=== PATIENT | female | born 1980 | race Caucasian/White ===

== ENCOUNTER → 2017-08-22 | Outpatient (CLI) | payer BC ==
--- NOTE | 2017-08-22 09:36 | CT ---
EXAMINATION TYPE: CT sinus wo con DATE OF EXAM: 08/22/2017 COMPARISON: NONE HISTORY: Patient complains of recurrent sinus infections. CT DLP: 630.3 mGycm. Automated Exposure Control for Dose Reduction was Utilized. TECHNIQUE: CT scan of the sinuses is performed without contrast, axial images are obtained, coronal r eformatted images are also reviewed. FINDINGS: The paranasal sinuses including the frontal, ethmoid, sphenoid, and maxillary sinuses bila terally are well-aerated without abnormal opacification. The ostiomeatal complex is patent bilateral ly on the coronal images. Visualized portion of mastoid air cells show no abnormal opacification. The globes are intact bilate rally. There is a nasal septal deviation. IMPRESSION: The sinuses are clear and the ostiomeatal complex is patent bilaterally.
== END | disposition home or self-care (01) ==
LOC: RADCTMAIN 08:57
PROVIDERS: ATTEND Otolaryngology
DX: J32.9 Chronic sinusitis, unspecified (principal)
CPT/HCPCS: 70486

== ENCOUNTER → 2018-12-16 | Outpatient (CLI) | payer BC ==
[2018-12-16 11:14] LABS: Basophils # (A) 0.1 k/uL (0-0.2); Basophils % (A) 1 %; Eosinophils # (A) 0.2 k/uL (0-0.7); Eosinophils % (A) 3 %; HCT 46.5 % (34.0-46.0); HGB 15.7 gm/dL (11.4-16.0); Lymphocytes # (A) 2.5 k/uL (1.0-4.8); Lymphocytes % (A) 41 %; MCH 30.8 pg (25.0-35.0); MCHC 33.8 g/dL (31.0-37.0); MCV 91.2 fL (80.0-100.0); Mean Platelet Volume 6.4; Monocytes # (A) 0.3 k/uL (0-1.0); Monocytes % (A) 6 %; Neutrophils % (A) 48 %; Platelet Count 366 k/uL (150-450); RDW 12.7 % (11.5-15.5); WBC 6.2 k/uL (3.8-10.6)
[2018-12-16 11:41] LABS: Appearance,Urine Cloudy (Clear); Bilirubin,Urine Negative (Negative); Blood,Urine Trace (Negative); Color,Urine Yellow; Glucose,Urine (UA) Negative (Negative); Ketones,Urine Negative (Negative); Leukocyte Esterase,Urine Small (Negative); Mucus,Urine Rare /hpf; Nitrite,Urine Negative (Negative); PH, Urine 5.5 (5.0-8.0); Protein,Urine Negative (Negative); RBC,Urine 2 /hpf (0-5); Squamous Epithelial Cell,Urine 11 /hpf (0-4); Urobilinogen,Urine <2.0 mg/dL (<2.0); WBC,Urine 3 /hpf (0-5)
[2018-12-16 12:10] LABS: Erythrocyte Sedimentation Rate 12 mm/hr (0-20)
[2018-12-16 16:58] LABS: Albumin/Globulin Ratio 2.27 (1.60-3.17); Anion Gap 6.8 mmol/L (4.00-12.00); Calcium 9.8 mg/dL (8.7-10.3); Carbon Dioxide 23.2 mmol/L (21.6-31.8); Globulin 2.2 g/dL (1.6-3.3); Potassium 4.3 mmol/L (3.5-5.5); Total Bilirubin 0.7 mg/dL (0.3-1.2); Total Protein 7.2 g/dL (6.2-8.2)
[2018-12-17 05:48] LABS: Gliadin AB IgA, Unit <0.2 U/mL
[2018-12-17 12:22] LABS: Anti-Endomysial IgA Antibody <1:10 Titer (<1:10)
== END | disposition home or self-care (01) ==
LOC: LABWHC1 10:09
PROVIDERS: ATTEND Allergy & Immunology
DX: K21.9 Gastro-esophageal reflux disease without esophagitis (principal); K59.09 Other constipation; J32.9 Chronic sinusitis, unspecified
CPT/HCPCS: 36415; 80053; 81001; 82784; 82785; 83516; 85025; 85652; 86003; 86162; 86255; 86317

== ENCOUNTER 2020-04-30 12:06 | Emergency (ER) | payer OTHER ==
[2020-04-30 12:14] VITALS: BP 132/86; PULSE 91; RESP 18; TEMP 97.9
[2020-04-30] MEDS ORDERED: FLUORESCEIN STRIPS 1 MG STRIP RIGHT EYE ONE (12:22)
[2020-04-30] MEDS ORDERED: PROPARACAINE 0.5% OPHTH DROPS 15 ML BTL RIGHT EYE STA (12:22)
[2020-04-30] MEDS ORDERED: ONDANSETRON 4 MG ODT STARTER PACK 2 TAB BTL PO STA (12:48)
--- NOTE | 2020-04-30 13:13 | ED ---
Eye Problem HPI - General Chief complaint: Eye Problems Stated complaint: Stick went in eye, nausea Time Seen by Provider: 04/30/20 12:21 Source: patient Mode of arrival: wheelchair Limitations: no limitations - History of Present Illness Initial comments: 40-year-old feel present for right eye pain and irritation after a weed Winter I she states she was weeding and there was a more stiff weed that she's struck her right eye with. She states that she has had light sensitivity and pain since. Patient states she has had blurred vision she doesn't surrounding redness. She states she's had some nausea and vomiting secondary to the pain she states that that she does not tolerate pain well and frequently vomits from pain remaining review of systems negative upon arrival patient appears well nontoxic distress - Related Data Previous Rx's Medication Instructions Recorded Ciprofloxacin Ophth Soln [Cipro 1 drops RIGHT EYE Q6HR 7 Days #3 ml 04/30/20 0.3% Ophth Soln] Allergies Allergy/AdvReac Type Severity Reaction Status Date / Time No Known Allergies Allergy Verified 04/30/20 12:14 Review of Systems ROS Statement: Those systems with pertinent positive or pertinent negative responses have been documented in the HPI. ROS Other: All systems not noted in ROS Statement are negative. Past Medical History Past Medical History: No Reported History History of Any Multi-Drug Resistant Organisms: None Reported Past Surgical History: Tonsillectomy Additional Past Surgical History / Comment(s): sinus surgery Past Psychological History: Anxiety Smoking Status: Current every day smoker Past Alcohol Use History: Rare Past Drug Use History: Marijuana General Exam - General Exam Comments Initial Comments: General: The patient is awake and alert, in no distress, and does not appear acutely ill. Eye: +3 mm pupils are equal, round and reactive to light, extra-ocular movements are intact. No nystagmus. There is mild right eye conjunctival injection. No signs of icterus. Ears, nose, mouth and throat: There are moist mucous membranes and no oral lesions. IOP 8 b/l. On fluorescein examination there is a lesion just right of the pupil at the 2 o'clock position 3/4cm. no greyish tone. no FB. no FB on lid. Negative [place] sign Neck: The neck is supple, there is no tenderness or JVD. Musculoskeletal: Normal ROM, no tenderness. Strength 5/5. Sensation intact. Pulses equal bilaterally 2+. Neurological: A&O x 3. CN II-XII intact, There are no obvious motor or sensory deficits. Coordination appears grossly intact. Speech is normal. Skin: Skin is warm and dry and no rashes or lesions are noted. Psychiatric: Cooperative, appropriate mood & affect, normal judgment. Limitations: no limitations Course Vital Signs 04/30/20 12:11 Temperature 97.9 F Pulse Rate 91 Respiratory 18 Rate Blood Pressure 132/86 O2 Sat by Pulse 100 Oximetry Medical Decision Making - Medical Decision Making history and physical examination consistent with corneal abrasion. We'll treat with ciprofloxacin have patient follow up promptly with ophthalmology on Friday given the size of the corneal abrasion this does not appear to be a corneal ulcer at this time. Patient was instructed to not use contact lenses. Return for worsening pain. Patient IOP within acceptable limits and pupil round reactive. Pt states vision too blurry to do [facility]. she had significant pain relief with proparacaine able to open eye. Discussed case attending patient is discharged appearing well Disposition Clinical Impression: Corneal abrasion, Acute right eye pain Disposition: HOME SELF-CARE Condition: Good Instructions (If sedation given, give patient instructions): Corneal Abrasion (ED) Additional Instructions: Please use medication as discussed. Please follow-up with ophthalmology tomorrow. Please return to emergency room if the symptoms increase or worsen or for any other concerns. Prescriptions: Ciprofloxacin Ophth Soln [Cipro 0.3% Ophth Soln] 1 drops RIGHT EYE Q6HR 7 Days #3 ml Is patient prescribed a controlled substance at d/c from ED?: No Referrals: Kae Muñoz III, MD [Primary Care Provider] - 1-2 days Royce Bailey MD [STAFF PHYSICIAN] - 1-2 days Michell Loomis MD [STAFF PHYSICIAN] - 1-2 days Time of Disposition: 13:14
[2020-04-30] MEDS ORDERED: CIPROFLOXACIN 0.3% OPHTH SOLN 5 ML BTL RIGHT EYE STA (13:25)
== END 2020-04-30 13:52 | disposition home or self-care (01) ==
LOC: EC 12:06
DX: S05.01XA Injury of conjunctiva and corneal abrasion without foreign body, right eye, initial encounter (principal); F17.200 Nicotine dependence, unspecified, uncomplicated; R11.2 Nausea with vomiting, unspecified; W22.8XXA Striking against or struck by other objects, initial encounter; Y93.89 Activity, other specified
CPT/HCPCS: 99283; S0119

== ENCOUNTER → 2020-05-01 | Outpatient (CLI) | payer OTHER ==
--- NOTE | 2020-05-01 14:52 | NM ---
EXAMINATION TYPE: NM hepatobiliary w EF DATE OF EXAM: 05/01/2020 COMPARISON: NONE INDICATION: Bilious vomiting right upper quadrant pain TECHNIQUE: After the intravenous administration of 5.0 mCi Tc 99m Mebrofenin hepatobiliary scintigrap hy is performed. Images were obtained immediately post injection. FINDINGS: There is prompt uptake and excretion of radiotracer by the liver. Extrahepatic ducts are identified at 10 minutes. The gallbladder is visualized within 37 minutes. Small bowel activity is noted within 15 minutes. At one hour 8 ounces of oral ensure plus is given to mimic CCK and gallbladder ejection fraction is c alculated at 77 %, which is in the normal range. (Normal >35% and <80%.). IMPRESSION: 1. Normal hepatobiliary scan
== END | disposition home or self-care (01) ==
LOC: RADNMMAIN 12:38
PROVIDERS: ATTEND Family Medicine
DX: R11.14 Bilious vomiting (principal); R10.11 Right upper quadrant pain
CPT/HCPCS: 78226; A9537

== ENCOUNTER 2022-12-20 21:06 | Inpatient (IN) | payer OTHER ==
[2022-12-20 21:37] LABS: Basophils # (A) 0.1 k/uL (0-0.2); Basophils % (A) 1 %; Eosinophils # (A) 0.1 k/uL (0-0.7); Eosinophils % (A) 2 %; Lymphocytes # (A) 2.6 k/uL (1.0-4.8); Lymphocytes % (A) 36 %; MCHC 35.1 g/dL (31.0-37.0); Monocytes # (A) 0.5 k/uL (0-1.0); Monocytes % (A) 7 %; Neutrophils # (A) 3.8 k/uL (1.3-7.7); Neutrophils % (A) 52 %; Platelet Count 355 k/uL (150-450); RBC 4.39 m/uL (3.80-5.40); RDW 12.1 % (11.5-15.5); WBC 7.4 k/uL (3.8-10.6)
[2022-12-20 21:48] LABS: ALT 22 U/L (4-34); AST 19 U/L (14-36); Acetaminophen 24.2 ug/mL; African American GFR (CKD) >90 (>60 ml/min/1.73 sqM); Albumin 4.2 g/dL (3.5-5.0); Alcohol <10 mg/dL; Alkaline Phosphatase 65 U/L (38-126); Anion Gap 10 mmol/L; Blood Urea Nitrogen 12 mg/dL (7-17); Carbon Dioxide 24 mmol/L (22-30); Chloride 106 mmol/L (98-107); Glucose 81 mg/dL (74-99); Lipase 57 U/L (23-300); Non-African American GFR(CKD) 86 (>60 ml/min/1.73 sqM); Potassium 3.5 mmol/L (3.5-5.1); Salicylate <1.0 mg/dL; Sodium 140 mmol/L (137-145); Total Bilirubin 0.7 mg/dL (0.2-1.3); Total Protein 7.1 g/dL (6.3-8.2)
[2022-12-20 21:50] LABS: INR 1.1 (<1.2)
[2022-12-20] MEDS ORDERED: SODIUM CHLORIDE 0.9% 1,000 ML IV STA (21:56)
--- NOTE | 2022-12-20 22:01 | XR ---
EXAMINATION TYPE: XR chest 1V DATE OF EXAM: 12/20/2022 9:53 PM COMPARISON: None TECHNIQUE: XR chest 1V Frontal view of the chest. CLINICAL INDICATION:Female, 42 years old with history of Overdose; FINDINGS: Lungs/Pleura: Low lung volumes are present. There is no evidence of pleural effusion, focal consolida tion, or pneumothorax. Pulmonary vascularity: Unremarkable. Heart/mediastinum: Cardiomediastinal silhouette is unremarkable. Musculoskeletal: No acute osseous pathology. IMPRESSION: Low lung volumes with a generalized hazy appearance which could represent atelectasis.
--- NOTE | 2022-12-20 22:07 | XR ---
EXAMINATION TYPE: XR KUB portable DATE OF EXAM: 12/20/2022 9:53 PM INDICATION: Patient age:Female; 42 years old; Reason for study: Overdose; COMPARISON: None. TECHNIQUE: One radiographic view of the abdomen was obtained. FINDINGS: The bowel gas pattern is nonspecific without dilated loops of small or large bowel. There i s no evidence for organomegaly or pneumoperitoneum. The osseous structures are intact. No abnormal calcifications are present. Fecal material and gas are demonstrated throughout the colon and rectum. IMPRESSION: Nonspecific bowel gas pattern without radiographic evidence for acute process.
[2022-12-20] MEDS ORDERED: NALOXONE 0.4 MG/ML 1 ML VIAL IV PRN (22:54)
--- NOTE | 2022-12-20 22:54 | ED ---
Overdose HPI - General Chief Complaint: Overdose Stated Complaint: Overdose Time Seen by Provider: 12/20/22 21:06 Source: family, EMS, RN notes reviewed Mode of arrival: EMS Limitations: no limitations, altered mental status - History of Present Illness Initial Comments: 42-year-old female history depression who is been very desponded over last week overdosed on Xanax 30 pills and butylbital/acetaminophen/caffeine 5 tablets intent of harming herself. Is unknown per family what exactly is setting this off. No alcohol reported no other drugs reported. Patient was brought in by EMS. Patient was awake and responsive during the entire trip to the hospital. The medication was ingested about 1915 p.m. MD Complaint: intentional overdose - Related Data Home Medications Medication Instructions Recorded Confirmed ALPRAZolam [Xanax] 0.25 mg PO DAILY PRN 12/20/22 12/20/22 Botox 1 dose SQ Q90D 12/20/22 12/20/22 Butalb/APAP/Caff 50-325-40Mg 1 tab PO BID PRN 12/20/22 12/20/22 [Fioricet 50-325-40] Ergocalciferol (Vitamin D2) 1,250 mcg PO Q7D 12/20/22 12/20/22 [Drisdol (50,000 Iu)] Ketoconazole 2% Shampoo [Nizoral] 1 applic TOPICAL DAILY PRN 12/20/22 12/20/22 PARoxetine HCL [Paxil] 40 mg PO DAILY 12/20/22 12/20/22 SUMAtriptan succinate [Imitrex] 100 mg PO BID PRN 12/20/22 12/20/22 buPROPion XL [Wellbutrin XL] 300 mg PO DAILY 12/20/22 12/20/22 Allergies Allergy/AdvReac Type Severity Reaction Status Date / Time No Known Allergies Allergy Verified 12/20/22 22:08 Review of Systems ROS Statement: Those systems with pertinent positive or pertinent negative responses have been documented in the HPI. ROS Other: All systems not noted in ROS Statement are negative. Past Medical History Past Medical History: No Reported History History of Any Multi-Drug Resistant Organisms: None Reported Past Surgical History: Tonsillectomy Additional Past Surgical History / Comment(s): sinus surgery Past Psychological History: Anxiety Smoking Status: Current every day smoker Past Alcohol Use History: Rare Past Drug Use History: Marijuana General Exam - General Exam Comments Initial Comments: Is a well-developed well-nourished awake alert but lethargic female Limitations: no limitations, altered mental status General appearance: alert, lethargic Head exam: Present: atraumatic, normocephalic, normal inspection Eye exam: Present: normal appearance, PERRL, EOMI. Absent: scleral icterus, conjunctival injection, periorbital swelling ENT exam: Present: normal exam, mucous membranes moist Neck exam: Present: normal inspection. Absent: tenderness, meningismus, lymphadenopathy Respiratory exam: Present: normal lung sounds bilaterally. Absent: respiratory distress, wheezes, rales, rhonchi, stridor Cardiovascular Exam: Present: regular rate, normal rhythm, normal heart sounds. Absent: systolic murmur, diastolic murmur, rubs, gallop, clicks GI/Abdominal exam: Present: soft, normal bowel sounds. Absent: distended, tenderness, guarding, rebound, rigid Extremities exam: Present: normal inspection, full ROM, normal capillary refill. Absent: tenderness, pedal edema, joint swelling, calf tenderness Back exam: Present: normal inspection Neurological exam: Present: alert, oriented X3, CN II-XII intact Psychiatric exam: Present: depressed, flat affect, suicidal ideation Skin exam: Present: warm, dry, intact, normal color. Absent: rash Course Vital Signs 12/20/22 21:12 Temperature 98.1 F Pulse Rate 91 Respiratory 20 Rate Blood Pressure 136/95 O2 Sat by Pulse 99 Oximetry Medical Decision Making - Medical Decision Making I did discuss the findings with the patient and family members were present patient is going to be petition by family members. Patient be admitted as a medical admit to Dr. Morillo service I did discuss this with Annika with psychiatry being consulted tomorrow mayo. Poison control was consulted repeat Tylenol level be gotten them 4 hours. Patient will have a sitter and suicide precautions.Was pt. sent in by a medical professional or institution (, PA, SUBSTATION OPERATOR CHIEF, urgent care, hospital, or shelter...) When possible be specific @ -No Did you speak to anyone other than the patient for history (EMS, parent, family, police, friend...)? What history was obtained from this source @ -Paramedics as well as family members Did you review nursing and triage notes (agree or disagree)? Why? @ -I reviewed and agree with nursing and triage notes Were old charts reviewed (outside hosp., previous admission, EMS record, old EKG, old radiological studies, urgent care reports/EKG's, shelter records)? Report findings @ -No old charts were reviewed Differential Diagnosis (chest pain, altered mental status, abdominal pain women, abdominal pain men, vaginal bleeding, weakness, fever, dyspnea, syncope, headache, dizziness, GI bleed, back pain, seizure, CVA, palpatations, mental health, musculoskeletal)? @ -Overdose EKG interpreted by me (3pts min.). @ -As above X-rays interpreted by me (1pt min.). @ -As above CT interpreted by me (1pt min.). @ -None done U/S interpreted by me (1pt. min.). @ -None done What testing was considered but not performed or refused? (CT, X-rays, U/S, labs)? Why? @ -None What meds were considered but not given or refused? Why? @ -None Did you discuss the management of the patient with other professionals (professionals i.e. , PA, SUBSTATION OPERATOR CHIEF, lab, RT, psych nurse, director social service, general technician, teacher, surveillance dual rate officer, manager case management)? Give summary @ -Annika covering for Dr. Morillo Was smoking cessation discussed for >3mins.? @ -No Was critical care preformed (if so, how long)? @ -Yesterday 1 minutes Were there social determinants of health that impacted care today? How? (Homelessness, low income, unemployed, alcoholism, drug addiction, transportation, low edu. Level, literacy, decrease access to med. care, residential, rehab)? @ -No Was there de-escalation of care discussed even if they declined (Discuss DNR or withdrawal of care, Hospice)? DNR status @ -No What co-morbidities impacted this encounter? (DM, HTN, Smoking, COPD, CAD, Cancer, CVA, ARF, Chemo, Hep., AIDS, mental health diagnosis, sleep apnea, mor bid obesity)? @ -Depression Was patient admitted / discharged? Hospital course, mention meds given and route, prescriptions, significant lab abnormalities, going to OR and other pertinent info. @ -The patient was admitted medically with pending psychiatric evaluation. Undiagnosed new problem with uncertain prognosis? @ -Polypharmacy overdose Drug Therapy requiring intensive monitoring for toxicity (Heparin, Nitro, Insulin, Cardizem)? @ -No Were any procedures done? @ -No Diagnosis/symptom? @ -Acute drug overdose, suicidal ideation, depression Acute, or Chronic, or Acute on Chronic? @ -Acute Uncomplicated (without systemic symptoms) or Complicated (systemic symptoms)? @ -Complicated Side effects of treatment? @ -No Exacerbation, Progression, or Severe Exacerbation? @ -No Poses a threat to life or bodily function? How? (Chest pain, [place], CA, pneumonia, PE, COPD, DKA, ARF, appy, cholecystitis, CVA, Diverticulitis, Homicidal, Suicidal, threat to staff... and all critical care pts) @ -Suicidal attempt and ideation - Lab Data Result diagrams: 12/20/22 21:19 12/20/22 21: Lab Results 12/20/22 12/20/22 12/20/22 Range/Units 21:19 21: 21: WBC 7.4 (3.8-10.6) k/uL RBC 4.39 (3.80-5.40) m/uL Hgb 14.0 (11.4-16.0) gm/dL Hct 40.0 (34.0-46.0) % MCV 91.0 (80.0-100.0) fL MCH 32.0 (25.0-35.0) pg MCHC 35.1 (31.0-37.0) g/dL RDW 12.1 (11.5-15.5) % Plt Count 355 (150-450) k/uL MPV 7.0 Neutrophils % 52 % Lymphocytes % 36 % Monocytes % 7 % Eosinophils % 2 % Basophils % 1 % Neutrophils # 3.8 (1.3-7.7) k/uL Lymphocytes # 2.6 (1.0-4.8) k/uL Monocytes # 0.5 (0-1.0) k/uL Eosinophils # 0.1 (0-0.7) k/uL Basophils # 0.1 (0-0.2) k/uL PT 11.0 (9.0-12.0) sec INR 1.1 (<1.2) Sodium 140 (137-145) mmol/L Potassium 3.5 (3.5-5.1) mmol/L Chloride 106 (98-107) mmol/L Carbon Dioxide 24 (22-30) mmol/L Anion Gap 10 mmol/L BUN 12 (7-17) mg/dL Creatinine 0.85 (0.52-1.04) mg/dL Est GFR (CKD-EPI)AfAm >90 (>60 ml/min/1.73 sqM) Est GFR (CKD-EPI)NonAf 86 (>60 ml/min/1.73 sqM) Glucose 81 (74-99) mg/dL Plasma Lactic Acid Simba (0.7-2.0) mmol/L Calcium 9.0 (8.4-10.2) mg/dL Total Bilirubin 0.7 (0.2-1.3) mg/dL AST 19 (14-36) U/L ALT 22 (4-34) U/L Alkaline Phosphatase 65 (38-126) U/L Troponin I (0.000-0.034) ng/mL Total Protein 7.1 (6.3-8.2) g/dL Albumin 4.2 (3.5-5.0) g/dL Lipase 57 (23-300) U/L Salicylates <1.0 mg/dL Acetaminophen 24.2 ug/mL Serum Alcohol <10 mg/dL 12/20/22 12/20/22 Range/Units 21:19 21:19 WBC (3.8-10.6) k/uL RBC (3.80-5.40) m/uL Hgb (11.4-16.0) gm/dL Hct (34.0-46.0) % MCV (80.0-100.0) fL MCH (25.0-35.0) pg MCHC (31.0-37.0) g/dL RDW (11.5-15.5) % Plt Count (150-450) k/uL MPV Neutrophils % % Lymphocytes % % Monocytes % % Eosinophils % % Basophils % % Neutrophils # (1.3-7.7) k/uL Lymphocytes # (1.0-4.8) k/uL Monocytes # (0-1.0) k/uL Eosinophils # (0-0.7) k/uL Basophils # (0-0.2) k/uL PT (9.0-12.0) sec INR (<1.2) Sodium (137-145) mmol/L Potassium (3.5-5.1) mmol/L Chloride (98-107) mmol/L Carbon Dioxide (22-30) mmol/L Anion Gap mmol/L BUN (7-17) mg/dL Creatinine (0.52-1.04) mg/dL Est GFR (CKD-EPI)AfAm (>60 ml/min/1.73 sqM) Est GFR (CKD-EPI)NonAf (>60 ml/min/1.73 sqM) Glucose (74-99) mg/dL Plasma Lactic Acid Simba 0.8 (0.7-2.0) mmol/L Calcium (8.4-10.2) mg/dL Total Bilirubin (0.2-1.3) mg/dL AST (14-36) U/L ALT (4-34) U/L Alkaline Phosphatase (38-126) U/L Troponin I <0.012 (0.000-0.034) ng/mL Total Protein (6.3-8.2) g/dL Albumin (3.5-5.0) g/dL Lipase (23-300) U/L Salicylates mg/dL Acetaminophen ug/mL Serum Alcohol mg/dL - EKG Data -: EKG Interpreted by Me EKG Comments: EKG interpreted by me normal sinus rhythm 88. Interval 155 QRS duration 96 QT since QTC 369/[address]-T wave changes - Radiology Data Interpreted by me: Imaging the current IV x-ray of the chest and KUB nonspecific Critical Care Time Critical Care Time: Yes Total Critical Care Time: 31 Disposition Clinical Impression: Drug overdose, Depression, Suicide attempt, Suicidal ideation Disposition: ADMITTED IP TO THIS [facility] Condition: Fair Referrals: Kae Muñoz III, MD [Primary Care Provider] - 1-2 days Decision Date: 12/20/22 Decision Time: 22:54
[2022-12-21] MEDS: SODIUM CHLORIDE 0.9% 1,000 ML IV SCH ×4 (00:26→22:46)
[2022-12-21 01:08] LABS: Amphetamine Screen,Urine Not Detected (NotDetected); Barbiturate Screen,Urine Detected (NotDetected); Benzodiazepines Screen,Urine Detected (NotDetected); Cocaine Screen,Urine Not Detected (NotDetected); Methadone Screen, Urine Not Detected (NotDetected); Opiate Screen,Urine Detected (NotDetected); Oxycodone Screen, Urine Not Detected (NotDetected); Phencyclidine Screen,Urine Not Detected (NotDetected); Tricyclic Antidepressant,Urine Not Detected (NotDetected); Urn Cannabinoid Scrn Detected (NotDetected)
[2022-12-21] MEDS ORDERED: OLANZapine 10 MG VIAL IM STA (05:59)
[2022-12-21 11:58] LABS: Basophils % (A) 1 %; Eosinophils # (A) 0.1 k/uL (0-0.7); Eosinophils % (A) 2 %; HGB 12.6 gm/dL (11.4-16.0); Lymphocytes # (A) 2.4 k/uL (1.0-4.8); Lymphocytes % (A) 42 %; MCH 31.2 pg (25.0-35.0); MCHC 34.1 g/dL (31.0-37.0); MCV 91.6 fL (80.0-100.0); Mean Platelet Volume 7.2; Monocytes # (A) 0.3 k/uL (0-1.0); Monocytes % (A) 5 %; Neutrophils # (A) 2.8 k/uL (1.3-7.7); Neutrophils % (A) 48 %; Platelet Count 312 k/uL (150-450); RBC 4.05 m/uL (3.80-5.40); RDW 12.7 % (11.5-15.5); WBC 5.7 k/uL (3.8-10.6)
[2022-12-21 12:03] LABS: ALT 22 U/L (4-34); AST 20 U/L (14-36); Acetaminophen <10.0 ug/mL; African American GFR (CKD) >90 (>60 ml/min/1.73 sqM); Albumin 3.8 g/dL (3.5-5.0); Albumin/Globulin Ratio 1.4; Alkaline Phosphatase 59 U/L (38-126); Anion Gap 9 mmol/L; Blood Urea Nitrogen 10 mg/dL (7-17); Calcium 8.9 mg/dL (8.4-10.2); Carbon Dioxide 21 mmol/L (22-30); Chloride 111 mmol/L (98-107); Globulin 2.7 g/dL; Glucose 83 mg/dL (74-99); Non-African American GFR(CKD) >90 (>60 ml/min/1.73 sqM); Potassium 3.9 mmol/L (3.5-5.1); Salicylate <1.0 mg/dL; Sodium 141 mmol/L (137-145); Total Bilirubin 0.8 mg/dL (0.2-1.3); Total Protein 6.5 g/dL (6.3-8.2)
[2022-12-21 12:23] LABS: Prothrombin Time 10.5 sec (9.0-12.0)
--- NOTE | 2022-12-21 15:22 | P.HPIM ---
History of Present Illness H&P Date: 12/21/22 History of present illness; patient is a 42-year-old lady with past medical significant for depression presents to the ER after overdosing on XANAX 30 PILLS AND butylbital/acetaminophen/caffeine 5 tabs with intention to hurt herself. Patient denies any auditory or visual hallucinations. There is no history of any other drug abuse. No history of alcohol abuse. Initial lab work done in the ER showed WBC 7.4, hemoglobin 14, platelet count 355, PT 11, INR 1.1, sodium 140, potassium 3.5, chloride 106, AST 19, ALT 22, Patient was petitioned by family in the ER, patient will be admitted to internal medicine further evaluation and treatment REVIEW OF SYSTEMS: Review of systems cannot be obtained, patient is lethargic, refuses to answer any questions PHYSICAL EXAMINATION: GENERAL: The patient is alert but lethargic, not in any acute distress. Well developed, well nourished. HEENT: Pupils are round and equally reacting to light. EOMI. No scleral icterus. No conjunctival pallor. Normocephalic, atraumatic. No pharyngeal erythema. No thyromegaly. CARDIOVASCULAR: S1 and S2 present. No murmurs, rubs, or gallops. PULMONARY: Chest is clear to auscultation, no wheezing or crackles. ABDOMEN: Soft, nontender, nondistended, normoactive bowel sounds. No palpable organomegaly. MUSCULOSKELETAL: No joint swelling or deformity. EXTREMITIES: No cyanosis, clubbing, or pedal edema. NEUROLOGICAL: Gross neurological examination did not reveal any focal deficits. SKIN: No rashes. Assessment and plan Intentional drug overdose Severe depression Suicidal attempt Plan; Monitor CBC Monitor CMP 1 on 1 sitter Suicide precautions Repeat acetaminophen and salicylate levels. Check PT/INR Possible control on board Psych consult Past Medical History Past Medical History: No Reported History History of Any Multi-Drug Resistant Organisms: None Reported Past Surgical History: Tonsillectomy Additional Past Surgical History / Comment(s): sinus surgery Past Psychological History: Anxiety Smoking Status: Current every day smoker Past Alcohol Use History: Rare Past Drug Use History: Marijuana Medications and Allergies Home Medications Medication Instructions Recorded Confirmed Type ALPRAZolam [Xanax] 0.25 mg PO DAILY PRN 12/20/22 12/20/22 History Botox 1 dose SQ Q90D 12/20/22 12/20/22 History Butalb/APAP/Caff 50-325-40Mg 1 tab PO BID PRN 12/20/22 12/20/22 History [Fioricet 50-325-40] Ergocalciferol (Vitamin D2) 1,250 mcg PO Q7D 12/20/22 12/20/22 History [Drisdol (50,000 Iu)] Ketoconazole 2% Shampoo [Nizoral] 1 applic TOPICAL DAILY PRN 12/20/22 12/20/22 History PARoxetine HCL [Paxil] 40 mg PO DAILY 12/20/22 12/20/22 History SUMAtriptan succinate [Imitrex] 100 mg PO BID PRN 12/20/22 12/20/22 History buPROPion XL [Wellbutrin XL] 300 mg PO DAILY 12/20/22 12/20/22 History Allergies Allergy/AdvReac Type Severity Reaction Status Date / Time No Known Allergies Allergy Verified 12/20/22 22:08 Physical Exam Vitals: Vital Signs Temp Pulse Pulse Resp BP BP Pulse Ox 12/21/22 08:40 97.6 F 73 18 108/66 100 12/21/22 08:01 82 18 100/72 96 12/21/22 07:02 95 15 96 12/21/22 06:22 108 H 20 97 12/21/22 02:07 79 17 118/60 98 12/21/22 01:25 85 12 97 12/20/22 21:12 98.1 F 91 20 136/95 99 Intake and Output 12/20/22 12/21/22 12/21/22 22:59 06:59 14:59 Other: Weight 79.379 kg Results CBC & Chem 7: 12/21/22 11:25 12/21/22 11:25 Labs: Abnormal Lab Results - Last 24 Hours (Table) 12/21/22 Range/Units 00:12 Urine Opiates Screen Detected H (NotDetected) Ur Barbiturates Screen Detected H (NotDetected) U Benzodiazepines Scrn Detected H (NotDetected) U Marijuana (THC) Screen Detected H (NotDetected)
[2022-12-21] MEDS: hydrOXYzine HCL 25 MG TAB PO PRN (17:13)
[2022-12-21] MEDS ORDERED: OLANZapine 10 MG VIAL IM PRN (17:30)
--- NOTE | 2022-12-21 17:34 | P.CN ---
Psychiatric Consult - . Consult date: 12/21/22 Consult:: 12/21/22 16:49 IDENTIFYING DATA: This patient is a 42-year-old unemployed female REASON FOR REFERRAL: Psychiatry was consulted for suicide attempt by overdose HISTORY OF PRESENT ILLNESS: The patient presented to the hospital after having taken reported amounts of Xanax 30 tablets and Fioricet. Of note, patient was agitated this morning at 0550, attempted to elope, was aggressive with staff, a ttempting to bite and spit, and kicking staff. She required restraints. Patient was seen this afternoon. She was quite nonchalant as she described that she overdosed on Xanax. She states that she took a whole bottle of this medication while her and children were not home. Her mother later reported that the patient had also sent her a text message expressing suicidal ideation. She provides vague responses and is guarded and defensive of her suicide attempt- "haven't you ever felt so horrible that you didn't want to deal with it any more?" She states that she struggled with depression her whole life. Patient states that she took the medications because "I didn't want to feel like this anymore ". She states that she has been stressed about one of her sons having mental illness and requiring medication. She reports compliance with Wellbutrin XL 300 mg and Paxil 40 mg, which are prescribed by her PCP. Patient states that this suicide attempt was impulsive and was not preplanned. She states that she would like to attend her son's graduation tomorrow but is unable to conceptualize how she might have been able to attend such an event if her suicide attempt was successful. She is unable to demonstrate or convey any positive coping skills that might prevent such impulsive destabilization particularly in the context of outside stressors. She becomes agitated, verbally caustic towards this provider, and aggressive when this provider attempted to explain to her that she will require psychiatric hospitalization following medical stabilization. She displays poor insight and poor coping mechanisms for frustration tolerance. At this time patient denies any homicidal ideation, intent or plan. Patient denies any auditory, visual hallucinations and denies any paranoia or delusions. PAST PSYCHIATRIC HISTORY: Patient has a a history of depression and receiving treatment with Wellbutrin XL 300 mg daily and Paxil 40 mg daily. She reports being psychiatrically hospitalized when she was 21 years old. She also endorses a history of seeing therapists but denies having any current outpatient psychiatrist. PAST MEDICAL HISTORY: Past Medical History: No Reported History History of Any Multi-Drug Resistant Organisms: None Reported Past Surgical History: Tonsillectomy Additional Past Surgical History / Comment(s): sinus surgery Past Psychological History: Anxiety Smoking Status: Current every day smoker Past Alcohol Use History: Rare Past Drug Use History: Marijuana ALLERGIES: as per EMR. CHEMICAL DEPENDENCY HISTORY: Patient reports vaping tobacco. She also endorses occasional cannabis use. She denies alcohol use. She denies other substance use. FAMILY PSYCHIATRIC/SUBSTANCE USE HISTORY: Cousin - suicide attempt SOCIAL HISTORY: Patient reports currently being and living with her and 2 sons. 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 MENTAL STATUS EXAM: General Appearance: Patient appears to be stated age is alert, unpleasant, and superficially cooperative then became uncooperative. Patient appears to have poor hygiene and grooming wearing hospital gown with poor eye contact. Behavior: Patient was calmly lying in bed without any agitated behavior. Upon recommendation for psychiatric hospitalization being discussed, patient became agitated Speech: Patient's speech is fluent and nonpressured. Mood/Affect: Patient reports their mood is "depressed what do you think", affect is irritable Suicidality/Homicidality: Patient currently denies having any suicidal or homicidal ideation intent or plan. Displaying psychological mechanisms of minimization and denial regarding recent suicide attempt via overdose Perceptions: Patient denies any visual hallucinations and denies any auditory hallucinations Though content/process: There is no evidence of any delusional thought content and thought process is linear and goal-directed. Fixated on discharge Memory and concentration: AOX3, grossly intact for the purposes of this session. Judgment and insight: Poor and impulsive IMPRESSIONS: Major depressive disorder, recurrent, severe without psychotic features Nicotine dependence PLAN: -At this time patient DOES meet criteria for inpatient psychiatric admission. -Would recommend the following medication changes/additions: Continue home Paxil 40 mg daily and hold Wellbutrin due to risk of seizures -Zyprexa PRN for agitation. QTc 415 -Continue 1:1 sitter for safety -Cannot leave AMA at this time. Patient will need a petition and first ce rtificate to be completed by primary team and renewed every 72 hours -When medically stable, patient is eligible for transfer to a psych bed when available. -Communicated plan to patient's nurse -Psychiatry will sign off at this time -Please contact with any questions.
[2022-12-21] MEDS: PARoxetine 20 MG TAB PO SCH (18:25)
[2022-12-21] MEDS ORDERED: DICYCLOMINE 10 MG CAP PO PRN (21:03)
[2022-12-21] MEDS: OLANZapine 5 MG TAB PO PRN (22:21)
[2022-12-22] MEDS: SODIUM CHLORIDE 0.9% 1,000 ML IV SCH ×3 (06:34→23:05)
[2022-12-22 07:52] LABS: HCT 38.2 % (34.0-46.0); MCH 31.3 pg (25.0-35.0); Platelet Count 336 k/uL (150-450); RBC 4.16 m/uL (3.80-5.40); RDW 12.3 % (11.5-15.5); WBC 6.2 k/uL (3.8-10.6)
[2022-12-22 08:13] LABS: ALT 21 U/L (4-34); AST 20 U/L (14-36); African American GFR (CKD) 88 (>60 ml/min/1.73 sqM); Albumin/Globulin Ratio 1.6; Alkaline Phosphatase 70 U/L (38-126); Anion Gap 9 mmol/L; Blood Urea Nitrogen 11 mg/dL (7-17); Calcium 8.8 mg/dL (8.4-10.2); Carbon Dioxide 22 mmol/L (22-30); Chloride 110 mmol/L (98-107); Globulin 2.5 g/dL; Glucose 93 mg/dL (74-99); Non-African American GFR(CKD) 76 (>60 ml/min/1.73 sqM); Potassium 3.8 mmol/L (3.5-5.1); Sodium 141 mmol/L (137-145); Total Bilirubin 0.4 mg/dL (0.2-1.3); Total Protein 6.5 g/dL (6.3-8.2)
[2022-12-22] MEDS: PARoxetine 20 MG TAB PO SCH (09:01)
[2022-12-22] MEDS: hydrOXYzine HCL 25 MG TAB PO PRN ×2 (12:41→21:28)
--- NOTE | 2022-12-22 13:13 | P.PN ---
Subjective Progress Note Date: 12/22/22 patient is a 42-year-old lady with past medical significant for depression presents to the ER after overdosing on XANAX 30 PILLS AND butylbital/acetaminophen/caffeine 5 tabs with intention to hurt herself. Patient denies any auditory or visual hallucinations. There is no history of any other drug abuse. No history of alcohol abuse. Initial lab work done in the ER showed WBC 7.4, hemoglobin 14, platelet count 355, PT 11, INR 1.1, sodium 140, potassium 3.5, chloride 106, AST 19, ALT 22, Patient was petitioned by family in the ER, patient will be admitted to internal medicine further evaluation and treatment 12/13. Patient seen and examined. All labs reviewed. Patient stating she did she will not go to inpatient psych. Explained to her the risk necessity for her to go to inpatient psych. Patient is currently petitioned and certed REVIEW OF SYSTEMS: CONSTITUTIONAL: No fever, no malaise,. CARDIOVASCULAR: No chest pain, no palpitations, no syncope. PULMONARY: No shortness of breath, no cough, GASTROINTESTINAL: No diarrhea, no nausea, no vomiting, no abdominal pain. NEUROLOGICAL: Complaining of headache. no weakness, PHYSICAL EXAMINATION: GENERAL: The patient is alert and oriented x3, not in any acute distress. Well developed, well nourished. HEENT: Pupils are round and equally reacting to light. EOMI. No scleral icterus. No conjunctival pallor. Normocephalic, atraumatic. No pharyngeal erythema. No thyromegaly. CARDIOVASCULAR: S1 and S2 present. No murmurs, rubs, or gallops. PULMONARY: Chest is clear to auscultation, no wheezing or crackles. ABDOMEN: Soft, nontender, nondistended, normoactive bowel sounds. No palpable organomegaly. MUSCULOSKELETAL: No joint swelling or deformity. EXTREMITIES: No cyanosis, clubbing, or pedal edema. NEUROLOGICAL: Gross neurological examination did not reveal any focal deficits. SKIN: No rashes. Assessment and plan Intentional drug overdose Severe depression Suicidal attempt Plan Monitor vital signs Monitor CBC Monitor CMP Suicide precautions One-on-one sitter patient has been petitioned and certted, patient medically stable for discharge to inpatient psych Psychiatry evaluated the patient recommended inpatient psych admission Objective - Vital Signs Vital signs: Vital Signs Temp 97.9 F 12/22/22 07:15 Pulse 79 12/22/22 07:15 Resp 15 12/22/22 07:15 BP 108/68 12/22/22 07:15 Pulse Ox 98 12/22/22 07:15 FiO2 Intake & Output 12/21/22 12/22/22 12/22/22 18:59 06:59 18:59 Weight 79.379 kg Other: Voiding Method Toilet # Voids 2 6 - Labs CBC & Chem 7: 12/22/22 07:05 12/22/22 07:05 Labs: Abnormal Lab Results - Last 24 Hours (Table) 12/22/22 Range/Units 07:05 Chloride 110 H (98-107) mmol/L
[2022-12-22] MEDS: KETOROLAC 15 MG/ML 1 ML VIAL IVP PRN (13:28)
[2022-12-22] MEDS: SUMAtriptan succinate 50 MG TAB PO PRN (16:34)
[2022-12-22] MEDS: OLANZapine 5 MG TAB PO PRN (22:40)
[2022-12-23] MEDS: SODIUM CHLORIDE 0.9% 1,000 ML IV SCH ×2 (05:02→13:14)
[2022-12-23] MEDS: PARoxetine 20 MG TAB PO SCH (09:37)
[2022-12-23] MEDS: KETOROLAC 15 MG/ML 1 ML VIAL IVP PRN (12:26)
--- NOTE | 2022-12-23 14:30 | P.PN ---
Subjective Progress Note Date: 12/23/22 patient is a 42-year-old lady with past medical significant for depression presents to the ER after overdosing on XANAX 30 PILLS AND butylbital/acetaminophen/caffeine 5 tabs with intention to hurt herself. Patient denies any auditory or visual hallucinations. There is no history of any other drug abuse. No history of alcohol abuse. Initial lab work done in the ER showed WBC 7.4, hemoglobin 14, platelet count 355, PT 11, INR 1.1, sodium 140, potassium 3.5, chloride 106, AST 19, ALT 22, Patient was petitioned by family in the ER, patient will be admitted to internal medicine further evaluation and treatment 12/22. Patient seen and examined. All labs reviewed. Patient stating she did she will not go to inpatient psych. Explained to her the risk necessity for her to go to inpatient psych. Patient is currently petitioned and certed 12/23. Patient seen and examined. Family wants psych to reevaluate the patient. Patient is medically stable for discharge pending psych decision REVIEW OF SYSTEMS: CONSTITUTIONAL: No fever, no malaise,. CARDIOVASCULAR: No chest pain, no palpitations, no syncope. PULMONARY: No shortness of breath, no cough, GASTROINTESTINAL: No diarrhea, no nausea, no vomiting, no abdominal pain. NEUROLOGICAL: Complaining of headache. no weakness, PHYSICAL EXAMINATION: GENERAL: The patient is alert and oriented x3, not in any acute distress. Well developed, well nourished. HEENT: Pupils are round and equally reacting to light. EOMI. No scleral icterus. No conjunctival pallor. Normocephalic, atraumatic. No pharyngeal erythema. No th yromegaly. CARDIOVASCULAR: S1 and S2 present. No murmurs, rubs, or gallops. PULMONARY: Chest is clear to auscultation, no wheezing or crackles. ABDOMEN: Soft, nontender, nondistended, normoactive bowel sounds. No palpable organomegaly. MUSCULOSKELETAL: No joint swelling or deformity. EXTREMITIES: No cyanosis, clubbing, or pedal edema. NEUROLOGICAL: Gross neurological examination did not reveal any focal deficits. SKIN: No rashes. Assessment and plan Intentional drug overdose Severe depression Suicidal attempt Plan Monitor vital signs Monitor CBC Monitor CMP Suicide precautions One-on-one sitter patient has been petitioned and certted, patient medically stable for discharge to inpatient psych Psychiatry evaluated the patient recommended inpatient psych admission, repeat psych evaluation requested Objective - Vital Signs Vital signs: Vital Signs Temp 98.4 F 12/23/22 07:33 Pulse 71 12/23/22 07:33 Resp 16 12/23/22 07:33 BP 110/71 12/23/22 07:33 Pulse Ox 98 12/23/22 07:33 FiO2 Intake & Output 12/22/22 12/23/22 12/23/22 18:59 06:59 18:59 Other: Voiding Method Toilet # Voids 5 1 - Labs CBC & Chem 7: 12/22/22 07:05 12/22/22 07:05
[2022-12-23] MEDS: SUMAtriptan succinate 50 MG TAB PO PRN (14:55)
--- NOTE | 2022-12-23 15:33 | CDI ---
Documentation Clarification Form Date: 12/23/2022 3:28:28 PM From: Vandana Perrin RN, CCDS Email: [email or web address] Admit Date: 12/20/2022 10:54:00 PM Patient Name: Zully Garsia Visit Number: [id number] Discharge Date: ATTENTION: The Clinical Documentation Specialists (CDI) and [facility] Coding Staff appreciate your assistance in clarifying documentation. Please respond to the clarification below the line at the bottom and electronically sign. The CDI & [facility] Coding staff will review the response and follow-up if needed. Please note: Queries are made part of the Legal Health Record. If you have any questions, please contact the author of this message via ITS. Dr. Polo Cohen Your patient has the documented symptom of Altered Mental Status" in the ED note. Additional clarification regarding the etiology/cause of this symptom is requested. History/Risk Factors: Depression, anxiety. Overdosed on 30 Xanax pills and 5 Butylbital/Acetaminophen/Caffeine tablets Clinical Indicators: 12/21 Psyche consult: "patient was agitated this morning at 0550, attempted to elope, was aggressive with staff, attempting to bite and spit, and kicking staff." 12/21 Nursing note: "patient attempted to elope, when staff attempted to intervene patient got physically aggressive with staff, attempted to bite security, kicking staff. Patient was safely placed on stretcher, patient then attempted to spit on staff. Patient was evaluated by ER and restraints applied to patient." 12/21 Labs: UDS: opiates, barbiturates, benzodiazepines and marijuana are detected Treatment: 1:1 sitter. Restraints. Zyprexa prn for agitation. Paxil 40mg po daily Please clarify the etiology of the symptom of Altered Mental Status: [ x] Toxic Encephalopathy [ ] Other condition (please specify) [ ] Unable to determine MTDD
[2022-12-23 19:34] VITALS: BP 131/85; PULSE 91; RESP 17; TEMP 98.1
--- NOTE | 2022-12-24 13:12 | P.DS ---
Providers Date of admission: 12/20/22 22:54 Expected date of discharge: 12/23/22 Attending physician: Cris Morillo Consults: 12/20/22 22:54 Consult Physician Routine Consulting Provider: Jamarcus Pascual Consult Reason/Comments: Suicide attempt, drug overdose Do you want consulting provider notified?: Yes, Notify in am Primary care physician: Kae Muñoz Hospital Course: Discharge diagnoses; Intentional drug overdose Severe depression Suicidal attempt Hospital course; patient is a 42-year-old lady with past medical significant for depression presents to the ER after overdosing on XANAX 30 PILLS AND butylbital/acetaminophen/caffeine 5 tabs with intention to hurt herself. Patient denies any auditory or visual hallucinations. There is no history of any other drug abuse. No history of alcohol abuse. Initial lab work done in the ER showed WBC 7.4, hemoglobin 14, platelet count 355, PT 11, INR 1.1, sodium 140, potassium 3.5, chloride 106, AST 19, ALT 22, Patient was petitioned by family in the ER, patient will be admitted to internal medicine further evaluation and treatment 12/22. Patient seen and examined. All labs reviewed. Patient stating she did she will not go to inpatient psych. Explained to her the risk necessity for her to go to inpatient psych. Patient is currently petitioned and certed 12/23. Patient seen and examined. Family wants psych to reevaluate the patient. Patient is medically stable for discharge pending psych decision. Patient was admitted to inpatient psych floor in stable condition PHYSICAL EXAMINATION: GENERAL: The patient is alert and oriented x3, not in any acute distress. Well developed, well nourished. HEENT: Pupils are round and equally reacting to light. EOMI. No scleral icterus. No conjunctival pallor. Normocephalic, atraumatic. No pharyngeal erythema. No thyromegaly. CARDIOVASCULAR: S1 and S2 present. No murmurs, rubs, or gallops. PULMONARY: Chest is clear to auscultation, no wheezing or crackles. ABDOMEN: Soft, nontender, nondistended, normoactive bowel sounds. No palpable organomegaly. MUSCULOSKELETAL: No joint swelling or deformity. EXTREMITIES: No cyanosis, clubbing, or pedal edema. NEUROLOGICAL: Gross neurological examination did not reveal any focal deficits. SKIN: No rashes. Patient Condition at Discharge: Fair Plan - Discharge Summary Discharge Rx Participant: No New Discharge Prescriptions: Continue buPROPion XL [Wellbutrin XL] 300 mg PO DAILY Butalb/APAP/Caff 50-325-40Mg [Fioricet 50-325-40] 1 tab PO BID PRN PRN Reason: Migraine Headache ALPRAZolam [Xanax] 0.25 mg PO DAILY PRN PRN Reason: Anxiety PARoxetine HCL [Paxil] 40 mg PO DAILY Botox 1 dose SQ Q90D Ergocalciferol (Vitamin D2) [Drisdol (50,000 Iu)] 1,250 mcg PO Q7D SUMAtriptan succinate [Imitrex] 100 mg PO BID PRN PRN Reason: Migraine Headache Ketoconazole 2% Shampoo [Nizoral] 1 applic TOPICAL DAILY PRN PRN Reason: SCALP Discharge Medication List ALPRAZolam [Xanax] 0.25 mg PO DAILY PRN 12/20/22 [History] Botox 1 dose SQ Q90D 12/20/22 [History] Butalb/APAP/Caff 50-325-40Mg [Fioricet 50-325-40] 1 tab PO BID PRN 12/20/22 [History] Ergocalciferol (Vitamin D2) [Drisdol (50,000 Iu)] 1,250 mcg PO Q7D 12/20/22 [History] Ketoconazole 2% Shampoo [Nizoral] 1 applic TOPICAL DAILY PRN 12/20/22 [History] PARoxetine HCL [Paxil] 40 mg PO DAILY 12/20/22 [History] SUMAtriptan succinate [Imitrex] 100 mg PO BID PRN 12/20/22 [History] buPROPion XL [Wellbutrin XL] 300 mg PO DAILY 12/20/22 [History] Follow up Appointment(s)/Referral(s): Kae Muñoz III, MD [Primary Care Provider] - 1-2 days Discharge Disposition: TRANSFER TO PSYCH HOSP/UNIT
== END 2022-12-23 20:26 | DRG 817 ==
LOC: EC 21:06 → 4SSUR 22:54
PROVIDERS: ADMIT Internal Medicine; ATTEND Internal Medicine
DX: T42.4X2A Poisoning by benzodiazepines, intentional self-harm, initial encounter (principal); G92.9 Unspecified toxic encephalopathy; F32.2 Major depressive disorder, single episode, severe without psychotic features; F41.9 Anxiety disorder, unspecified; Z20.822 Contact with and (suspected) exposure to COVID-19; Z28.310 Unvaccinated for COVID-19; F12.90 Cannabis use, unspecified, uncomplicated; F17.290 Nicotine dependence, other tobacco product, uncomplicated; Z79.899 Other long term (current) drug therapy; Z78.1 Physical restraint status; Z56.0 Unemployment, unspecified; Z81.8 Family history of other mental and behavioral disorders
CPT/HCPCS: 36415; 71045; 74018; 80053; 80143; 80179; 80306; 80320; 81025; 83605; 83690; 84484; 85025; 85027; 85610; 87635; 93005; 96360; 96361; 96372; 99291

== ENCOUNTER 2022-12-23 19:29 | Inpatient (IN) | payer MEDICAID ==
[2022-12-23] MEDS ORDERED: BUTALB/APAP/CAFF 50-325-40MG TAB PO PRN (19:36)
[2022-12-23] MEDS ORDERED: OLANZapine 5 MG TAB PO PRN (19:40)
[2022-12-23] MEDS ORDERED: MAG HYDROX/AL HYDROX/SIMETH 30 ML CUP PO PRN (19:40)
[2022-12-23] MEDS ORDERED: OLANZapine 10 MG VIAL IM PRN (19:40)
[2022-12-23] MEDS ORDERED: MAGNESIUM HYDROXIDE 2,400 MG/10 ML CUP PO PRN (19:40)
[2022-12-23] MEDS ORDERED: IBUPROFEN 600 MG TAB PO PRN (19:40)
[2022-12-23] MEDS: NICOTINE 14MG/24HR PATCH TRANSDERM SCH (20:56)
[2022-12-24] MEDS: NICOTINE 14MG/24HR PATCH TRANSDERM SCH (08:50)
[2022-12-24] MEDS ORDERED: PARoxetine 20 MG TAB PO SCH (09:00)
[2022-12-24 11:04] LABS: Chol/HDL Ratio 6.79 Ratio; LDL Cholesterol,Calculated 135.6 mg/dL (0.0-131.0)
--- NOTE | 2022-12-24 13:15 | P.MDCNMH ---
History of Present Illness H&P Date: 12/24/22 History of present illness; patient is a 42-year-old lady with past medical significant for depression presents to the ER after overdosing on XANAX 30 PILLS AND butylbital/acetaminophen/caffeine 5 tabs with intention to hurt herself. Patient denies any auditory or visual hallucinations. There is no history of any other drug abuse. No history of alcohol abuse. Initial lab work done in the ER showed WBC 7.4, hemoglobin 14, platelet count 355, PT 11, INR 1.1, sodium 140, potassium 3.5, chloride 106, AST 19, ALT 22, Patient was petitioned by family in the ER, later admitted to internal medicine service team. Psychiatry evaluated the patient and recommended that once patient is medically cleared she needs to be transfer to inpatient psych. Patient was discharged inpatient psych yesterday REVIEW OF SYSTEMS: CONSTITUTIONAL: No fever, no malaise, no fatigue. HEENT: No recent visual problems or hearing problems. Denied any sore throat. CARDIOVASCULAR: No chest pain, orthopnea, PND, no palpitations, no syncope. PULMONARY: No shortness of breath, no cough, no hemoptysis. GASTROINTESTINAL: No diarrhea, no nausea, no vomiting, no abdominal pain. NEUROLOGICAL: No headaches, no weakness, no numbness. HEMATOLOGICAL: Denies any bleeding or petechiae. GENITOURINARY: Denies any burning micturition, frequency, or urgency. MUSCULOSKELETAL/RHEUMATOLOGICAL: Denies any joint pain, swelling, or any muscle pain. ENDOCRINE: Denies any polyuria or polydipsia. The rest of the 14-point review of systems is negative. PHYSICAL EXAMINATION: GENERAL: The patient is alert and oriented x3, not in any acute distress. Well developed, well nourished. HEENT: Pupils are round and equally reacting to light. EOMI. No scleral icterus. No conjunctival pallor. Normocephalic, atraumatic. No pharyngeal erythema. No thyromegaly. CARDIOVASCULAR: S1 and S2 present. No murmurs, rubs, or gallops. PULMONARY: Chest is clear to auscultation, no wheezing or crackles. ABDOMEN: Soft, nontender, nondistended, normoactive bowel sounds. No palpable organomegaly. MUSCULOSKELETAL: No joint swelling or deformity. EXTREMITIES: No cyanosis, clubbing, or pedal edema. NEUROLOGICAL: Gross neurological examination did not reveal any focal deficits. SKIN: No rashes. Assessment and plan Intentional drug overdose Severe depression Suicidal attempt Plan; Continue Imitrex as needed for headaches. Continue psych meds per psychiatry team Past Medical History Past Medical History: No Reported History Additional Past Medical History / Comment(s): migraines History of Any Multi-Drug Resistant Organisms: None Reported Past Surgical History: Tonsillectomy Additional Past Surgical History / Comment(s): sinus surgery Past Anesthesia/Blood Transfusion Reactions: No Reported Reaction Past Psychological History: Anxiety Smoking Status: Vaper Past Alcohol Use History: Rare Past Drug Use History: Marijuana - Past Family History Father Family Medical History: No Reported History Medications and Allergies Home Medications Medication Instructions Recorded Confirmed Type ALPRAZolam [Xanax] 0.25 mg PO DAILY PRN 12/20/22 12/23/22 History Botox 1 dose SQ Q90D 12/20/22 12/23/22 History Butalb/APAP/Caff 50-325-40Mg 1 tab PO BID PRN 12/20/22 12/23/22 History [Fioricet 50-325-40] Ergocalciferol (Vitamin D2) 1,250 mcg PO Q7D 12/20/22 12/23/22 History [Drisdol (50,000 Iu)] Ketoconazole 2% Shampoo [Nizoral] 1 applic TOPICAL DAILY PRN 12/20/22 12/23/22 History PARoxetine HCL [Paxil] 40 mg PO DAILY 12/20/22 12/23/22 History SUMAtriptan succinate [Imitrex] 100 mg PO BID PRN 12/20/22 12/23/22 History buPROPion XL [Wellbutrin XL] 300 mg PO DAILY 12/20/22 12/23/22 History Allergies Allergy/AdvReac Type Severity Reaction Status Date / Time No Known Allergies Allergy Verified 12/20/22 22:08 Physical Exam Vitals: Vital Signs Temp Pulse Resp BP Pulse Ox 12/24/22 01:38 97.3 F L 86 16 127/83 12/23/22 21:04 97.8 F 89 18 146/86 97 Intake and Output 12/23/22 12/24/22 12/24/22 22:59 06:59 14:59 Other: Weight 81.363 kg Cranial Nerve Examination - Cranial Nerves Cranial Nerve II- Optic: Intact (Cranial nerves II-12 intact) Cranial Nerve III- Oculomotor: Intact Cranial Nerve IV- Trochlear: Intact Cranial Nerve V- Trigeminal: Intact Cranial Nerve - Abducens: Intact Cranial Nerve VII- Facial: Intact Cranial Nerve VIII- Auditory: Intact Cranial Nerve IX- Glossopharyngeal: Intact Cranial Nerve X- Vagus: Intact Cranial Nerve XI- Accessory: Intact Cranial Nerve XII- Hypoglossal: Intact Results Labs: Abnormal Lab Results - Last 24 Hours (Table) 12/24/22 Range/Units 06:35 Triglycerides 196.00 H (0.00-149.00) mg/dL Cholesterol 205.00 H (0.00-200.00) mg/dL LDL Cholesterol, Calc 135.6 H (0.0-131.0) mg/dL HDL Cholesterol 30.20 L (40.00-60.00) mg/dL
[2022-12-24] MEDS: SUMAtriptan succinate 50 MG TAB PO PRN (13:38)
[2022-12-24] MEDS: SERTRALINE 50 MG TAB PO SCH (14:55)
[2022-12-24] MEDS: LITHIUM CARBONATE 150 MG CAP PO SCH ×2 (14:55→20:12)
--- NOTE | 2022-12-24 19:29 | P.HP ---
Psychiatric H&P - . H&P Date: 12/24/22 History & Physical: Allergies Allergy/AdvReac Type Severity Reaction Status Date / Time No Known Allergies Allergy Verified 12/20/22 22:08 Vital Signs Temp 97.3 F L 12/24/22 01:38 Pulse 86 12/24/22 01:38 Resp 16 12/24/22 01:38 BP 127/83 12/24/22 01:38 Pulse Ox 97 12/23/22 21:04 FiO2 Intake & Output 12/23/22 12/24/22 12/24/22 18:59 06:59 18:59 Weight 81.363 kg Laboratory Last Values Triglycerides 196.00 mg/dL (0.00-149.00) H 12/24/22 06:35 Cholesterol 205.00 mg/dL (0.00-200.00) H 12/24/22 06:35 LDL Cholesterol, Calc 135.6 mg/dL (0.0-131.0) H 12/24/22 06:35 VLDL Cholesterol, Calc 39.20 mg/dL (5.00-40.00) 12/24/22 06:35 HDL Cholesterol 30.20 mg/dL (40.00-60.00) L 12/24/22 06:35 Cholesterol/HDL Ratio 6.79 Ratio 12/24/22 06:35 TSH 2.120 mIU/L (0.465-4.680) 12/24/22 06:35 12/24/22 13:44 IDENTIFYING DATA: This patient is a 42-year-old unemployed female, who is currently and lives with her and 2 kids, she is unemployed. HISTORY OF PRESENT ILLNESS: Patient was seen for psychiatric admission today was involuntary on the mental health unit. Patient was initially seen by Dr Cox for consultation on the medical floors and as per her note "The patient presented to the hospital after having taken reported amounts of Xanax 30 tablets and Fioricet. Of note, patient was agitated this morning at 0550, attempted to elope, was aggressive with staff, attempting to bite and spit, and kicking staff. She required restraints. Patient was seen this afternoon. She was quite nonchalant as she described that she overdosed on Xanax. She states that she took a whole bottle of this medication while her and children were not home. Her mother later reported that the patient had also sent her a text message expressing suicidal ideation. She provides vague responses and is guarded and defensive of her suicide attempt- "haven't you ever felt so horrible that you didn't want to deal with it any more?" She states that she struggled with depression her whole life. Patient states that she took the medications because "I didn't want to feel like this anymore ". She states that she has been stressed about one of her sons having mental illness and requiring medication. She reports compliance with Wellbutrin XL 300 mg and Paxil 40 mg, which are prescribed by her PCP. Patient states that this suicide attempt was impulsive and was not preplanned. She states that she would like to attend her son's graduation tomorrow but is unable to conceptualize how she might have been able to attend such an event if her suicide attempt was successful. She is unable to demonstrate or convey any positive coping skills that might prevent such impulsive destabilization particularly in the context of outside stressors. She becomes agitated, verbally caustic towards this provider, and aggressive when this provider attempted to explain to her that she will require psychiatric hospitalization following medical stabilization. She displays poor insight and poor coping mechanisms for frustration tolerance." Patient was seen today again for psychiatric evaluation. Patient was complaining of chronic depression, dealing with severe headaches on and off for several years now. She states that she does follow with a neurologist however does not have good medications for her. She claims that she took 25-30 tablets of her Xanax all at once. She states that "I was feeling really bad but I didn't want to kill myself". She states that she has not been functioning very well at home and wanted to "just go to sleep". She was fairly superficial guarded/evasive about the overdose and was minimizing it. She was fairly focused about being discharged and does not believe she needs hospitalization. She claims that she missed her son's graduation. She claims that she and her son have been struggling with depression and anxiety and she has forgot about her own mental health. She claims that she has been feeling depressed and also anxious. at this time patient denies any current suicidal or homicidal ideation, intent or plan. Patient denies any auditory, visual hallucinations and denies any paranoia or delusions. She claims that she smokes occasional marijuana, uses vape nicotine products regularly. PAST PSYCHIATRIC HISTORY: Patient has a a history of depression and receiving treatment with Wellbutrin XL 300 mg daily and Paxil 40 mg daily. She reports being psychiatrically hospitalized when she was 21 years old. She also endorses a history of seeing therapists but denies having any current outpatient psychiatrist. PAST MEDICAL HISTORY: Past Medical History: No Reported History History of Any Multi-Drug Resistant Organisms: None Reported Past Surgical History: Tonsillectomy Additional Past Surgical History / Comment(s): sinus surgery Past Psychological History: Anxiety Smoking Status: Current every day smoker Past Alcohol Use History: Rare Past Drug Use History: Marijuana ALLERGIES: as per EMR. CHEMICAL DEPENDENCY HISTORY: Patient reports vaping tobacco. She also endorses occasional cannabis use. She denies alcohol use. She denies other substance use. FAMILY PSYCHIATRIC/SUBSTANCE USE HISTORY: Cousin - suicide attempt SOCIAL HISTORY: Patient reports currently being and living with her and 2 sons. 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 MENTAL STATUS EXAM: General Appearance: Patient appears to be stated age is alert, unpleasant, and superficial. Patient appears to have poor hygiene and grooming wearing hospital gown with fair eye contact. Behavior: Patient was calmly sitting in the chair without any agitated behavior. Superficial, evasive and guarded. Speech: Patient's speech is fluent and nonpressured. Mood/Affect: Patient reports their mood is "depressed for a long time", affect is irritable Suicidality/Homicidality: Patient currently denies having any suicidal or homicidal ideation intent or plan. Minimizing Perceptions: Patient denies any visual hallucinations and denies any auditory hallucinations Though content/process: There is no evidence of any delusional thought content and thought process is linear and goal-directed. Fixated on discharge. Minimizing her need for treatment and hospitalization. Memory and concentration: AOX3, grossly intact for the purposes of this session. Judgment and insight: Poor/impulsive IMPRESSIONS: Major depressive disorder, recurrent, severe without psychotic features overdose of benzodiazepines Cannabis use disorder mild Nicotine dependence STRENGTHS/WEAKNESSES: strength is that patient is resilient. Weakness is that patient has poor judgment and is impulsive INTELLECT: average PLAN: -Patient is admitted under involuntary status to MHU for stabilization of psychiatric symptoms and safety. Patient has signed medication consent and is placed in patient's chart. A second certification was completed and along with petition will be filed for court. -Medications : Will start patient on Zoloft 50 mg daily for mood/anxiety, lithium 150 mg twice a day or mood stabilization/mood adjunct. Trazodone 50 mg daily at bedtime when necessary for insomnia. -Zyprexa PRN for agitation/aggression. Imitrex when necessary for headaches. -Patient was counselled on substance abuse and desired to cut back on use -Patient was informed of the risks, benefits and side effects of the medication and patient verbally consented to taking the medications. Patient signed med consent form and was placed in chart. -Internal Medicine consult to perform medical evaluation and physical. -NRT - nicotine patch -SW on board for discharge planning. Encourage patient to participate in groups to work on coping skills. Will await deferral and court date. 12/24/22 19:28
[2022-12-24] MEDS: traZODone HCL 50 MG TAB PO PRN (20:12)
[2022-12-25] MEDS: SUMAtriptan succinate 50 MG TAB PO PRN (04:53)
[2022-12-25] MEDS: NICOTINE 14MG/24HR PATCH TRANSDERM SCH (08:41)
[2022-12-25] MEDS: SERTRALINE 50 MG TAB PO SCH (08:41)
[2022-12-25] MEDS: LITHIUM CARBONATE 150 MG CAP PO SCH ×2 (08:41→21:21)
--- NOTE | 2022-12-25 09:55 | P.PN ---
Progress Note - Text Progress Note Date: 12/25/22 Interval History: Patient was seen [wandering the hallways] and was directable and agreeable to speak with junior copywriter in the office. Patient appears to be and brighter spirits today. She claims that she is doing a bit better compared to yesterday. She was less argumentative today with junior copywriter and asked her questions about her medications. She claims that she has been tolerating them fairly well so far. Claimed that she is trying to go to some groups. She was asking more about the legal process and when the corporate associate attorney will come to see her. She states that she is able to sleep fairly last night after taking trazodone. Claimed that her appetite is mildly improving. At this time patient denies any suicidal or homical ideations, intent or plan. Patient denies any auditory, visual hallucinations and denies any paranoia or delusions. Patient denies any side effects from the medications and has been compliant with meds. Mental Status Exam: general Appearance: Patient appears to be stated age is alert, more cooperative today. Patient appears to have improving mildly hygiene and grooming wearing hospital gown with fair eye contact. Behavior: Patient was calmly sitting in the chair without any agitated behavior. Last superficial. Speech: Patient's speech is fluent and nonpressured. Mood/Affect: Patient reports their mood is "a bit better", affect is congruent Suicidality/Homicidality: Patient currently denies having any suicidal or homicidal ideation intent or plan. Perceptions: Patient denies any visual hallucinations and denies any auditory hallucinations Though content/process: There is no evidence of any delusional thought content and thought process is linear and goal-directed. Memory and concentration: AOX3, grossly intact for the purposes of this session. Judgment and insight: Poor/impulsive, improving mildly IMPRESSIONS: Major depressive disorder, recurrent, severe without psychotic features overdose of benzodiazepines Cannabis use disorder mild Nicotine dependence PLAN: -Patient is admitted under involuntary status to MHU for stabilization of psyc hiatric symptoms and safety. Patient has signed medication consent and is placed in patient's chart. Currently awaiting deferral and court date. -Medications : continue Zoloft 50 mg daily for mood/anxiety, lithium 150 mg twice a day or mood stabilization/mood adjunct. Trazodone 50 mg daily at bedtime when necessary for insomnia. -Zyprexa PRN for agitation/aggression. Imitrex when necessary for headaches. educated patient about the signs and sx of serotonin syndrome and also treatment of it and how to prevent or minimize risk. -NRT - nicotine patch -SW on board for discharge planning. Encourage patient to participate in groups to work on coping skills. Will await deferral and court date.
[2022-12-25] MEDS: ACETAMINOPHEN TAB 325 MG TAB PO PRN (12:11)
[2022-12-25] MEDS: traZODone HCL 50 MG TAB PO PRN (21:18)
[2022-12-26] MEDS: NICOTINE 14MG/24HR PATCH TRANSDERM SCH (08:49)
[2022-12-26] MEDS: SERTRALINE 50 MG TAB PO SCH (08:50)
[2022-12-26] MEDS: LITHIUM CARBONATE 150 MG CAP PO SCH ×2 (08:50→20:46)
[2022-12-26] MEDS ORDERED: traZODone HCL 100 MG TAB PO PRN (10:35)
[2022-12-26] MEDS ORDERED: KETOCONAZOLE 2% SHAMPOO 1 APPLIC/ML TOPICAL PRN (10:36)
--- NOTE | 2022-12-26 10:40 | P.PN ---
Progress Note - Text Progress Note Date: 12/26/22 Interval History: Patient was seen sitting near the nurse's desk and was directable and agreeable to speak with production underwriter in the office. Patient appears to be and brighter spirits today and states that she is improving with regards to her mood and anxiety. She states that she has been feeling a bit more optimistic today. Claims that the medication has been helping her mood stay more stable. States that she is having a little bit of a dry mouth however has been drinking water which has been making her feel better. Claims that she only got about 4 hours last night of sleep and was okay with having her trazodone increased to 100 mg. States that her appetite is fair. She claims that her came to visit her last night and that it went well. At this time patient denies any suicidal or homical ideations, intent or plan. Patient denies any auditory, visual hallucinations and denies any paranoia or delusions. Patient denies any side effects from the medications and has been compliant with meds. Mental Status Exam: general Appearance: Patient appears to be stated age is alert, more cooperative today. Patient appears to have improving mildly hygiene and grooming wearing hospital gown with fair eye contact. Behavior: Patient was calmly sitting in the chair without any agitated behavior. Less superficial. Speech: Patient's speech is fluent and nonpressured. Mood/Affect: Patient reports their mood is "better", affect is congruent Suicidality/Homicidality: Patient currently denies having any suicidal or homicidal ideation intent or plan. Perceptions: Patient denies any visual hallucinations and denies any auditory hallucinations Though content/process: There is no evidence of any delusional thought content and thought process is linear and goal-directed. Memory and concentration: AOX3, grossly intact for the purposes of this session. Judgment and insight: Poor/impulsive, improving mildly IMPRESSIONS: Major depressive disorder, recurrent, severe without psychotic features overdose of benzodiazepines Cannabis use disorder mild Nicotine dependence PLAN: -Patient is admitted under involuntary status to MHU for stabilization of psychiatric symptoms and safety. Patient has signed medication consent and is placed in patient's chart. Currently awaiting deferral and court date. -Medications : continue Zoloft 50 mg daily for mood/anxiety, lithium 150 mg twice a day or mood stabilization/mood adjunct. increase Trazodone 100 mg daily at bedtime when necessary for insomnia. -Zyprexa PRN for agitation/aggression. Imitrex when necessary for headaches. educated patient about the signs and sx of serotonin syndrome and also treatment of it and how to prevent or minimize risk. -NRT - nicotine patch -SW on board for discharge planning. Encourage patient to participate in groups to work on coping skills. patient deferred with civil attorney. sw to contact pts and prepare for possible d/c tomorrow.
[2022-12-27 05:25] VITALS: BP 126/61; PULSE 86; RESP 16; TEMP 98.7
[2022-12-27] MEDS: LITHIUM CARBONATE 150 MG CAP PO SCH (08:04)
[2022-12-27] MEDS: SERTRALINE 50 MG TAB PO SCH (08:04)
[2022-12-27] MEDS: NICOTINE 14MG/24HR PATCH TRANSDERM SCH (08:04)
[2022-12-27] MEDS ORDERED: ERGOCALCIFEROL 1,250 MCG (50,000 IU) CAPSULE PO SCH (09:00)
[2022-12-27] MEDS: ACETAMINOPHEN TAB 325 MG TAB PO PRN (09:04)
--- NOTE | 2022-12-27 10:17 | P.DS ---
Providers Date of admission: 12/23/22 20:28 Expected date of discharge: 12/27/22 Attending physician: James Hwang MD Consults: 12/23/22 19:40 Consult Physician Routine Consulting Provider: Cris Morillo Consult Reason/Comments: H&P and medical Do you want consulting provider notified?: Yes Primary care physician: Kae Muñoz - Discharge Diagnosis(es) (1) Major depressive disorder, recurrent severe without psychotic features Current Visit: Yes Status: Acute Priority: High (2) Overdose of benzodiazepine Current Visit: Yes Status: Acute Priority: High (3) Cannabis use disorder, mild, abuse Current Visit: Yes Status: Acute Priority: Low (4) Nicotine dependence Current Visit: Yes Status: Acute Priority: Low Hospital Course: Admission HPI: Admission note was completed by securities underwriter "This patient is a 42-year-old unemployed female, who is currently and lives with her and 2 kids, she is unemployed. Patient was seen for psychiatric admission today was involuntary on the mental health unit. Patient was initially seen by Dr Cox for consultation on the medical floors and as per her note "The patient presented to the hospital after having taken reported amounts of Xanax 30 tablets and Fioricet. Of note, patient was agitated this morning at 0550, attempted to elope, was aggressive with staff, attempting to bite and spit, and kicking staff. She required restraints. Patient was seen this afternoon. She was quite nonchalant as she described that she overdosed on Xanax. She states that she took a whole bottle of this medication while her and children were not home. Her mother later reported that the patient had also sent her a text message expressing suicidal ideation. She provides vague responses and is guarded and defensive of her suicide attempt- "haven't you ever felt so horrible that you didn't want to deal with it any more?" She states that she struggled with depression her whole life. Patient states that she took the medications because "I didn't want to feel like this anymore ". She states that she has been stressed about one of her sons having mental illness and requiring medication. She reports compliance with Wellbutrin XL 300 mg and Paxil 40 mg, which are prescribed by her PCP. Patient states that this suicide attempt was impulsive and was not preplanned. She states that she would like to attend her son's graduation tomorrow but is unable to conceptualize how she might have been able to attend such an event if her suicide attempt was successful. She is unable to demonstrate or convey any positive coping skills that might prevent such impulsive destabilization particularly in the context of outside stressors. She becomes agitated, verbally caustic towards this provider, and aggressive when this provider attempted to explain to her that she will require psychiatric hospitalization following medical stabilization. She displays poor insight and poor coping mechanisms for frustration tolerance." Patient was seen today again for psychiatric evaluation. Patient was complaining of chronic depression, dealing with severe headaches on and off for several years now. She states that she does follow with a neurologist however does not have good medications for her. She claims that she took 25-30 tablets of her Xanax all at once. She states that "I was feeling really bad but I didn't want to kill myself". She states that she has not been functioning very well at home and wanted to "just go to sleep". She was fairly superficial guarded/evasive about the overdose and was minimizing it. She was fairly focused about being discharged and does not believe she needs hospitalization. She claims that she missed her son's graduation. She claims that she and her son have been struggling with depression and anxiety and she has forgot about her own mental health. She claims that she has been feeling depressed and also anxious. at this time patient denies any current suicidal or homicidal ideation, intent or plan. Patient denies any auditory, visual hallucinations and denies any paranoia or delusions. She claims that she smokes occasional marijuana, uses vape nicotine products regularly." Hospital course: Upon admission to the unit patient was admitted involuntarily on a petition and certificate and a second certificate was completed and faxed with the courts. Patient ended up signing a deferral with the woodworking machine setter and agreeing to treatment. Patient got along well with other patients on the unit and followed unit protocol. Patient was compliant with the medications and denied any side effects throughout hospital course. Patient was started on Zoloft 50 mg daily for mood/anxiety, lithium 150 mg twice a day for mood stabilization/mood adjunct, trazodone 100 mg daily at bedtime prn for insomnia. Patient spoke of her stressors and engaged in therapy both group and individual. Patient was also seen by medical team for history and physical exam. Throughout the course of the hospitalization patient gradually improved with regards to mood, anxiety, sleep and became more future oriented with improved insight and judgment. On the day of discharge patient denied any suicidal or homicidal ideations intent or plan denied any auditory or visual hallucinations. Patient endorsed wanting to live for her family and her future. The patient denied any access to guns or weapons. Patient denied any paranoia and did not endorse any delusions. Patient does have a significant history of substance abuse and was counseled on abstaining from all substances including alcohol and marijuana. Patient was also counseled on the medications and need for regular compliance and was encouraged to follow-up with their outpatient appointment for mental health and also for primary care. Prior to discharge a family meeting will be arranged by social work specialist to answer any questions and ensure safety upon discharge. Mental status exam: General Appearance: Patient appears to be stated age is alert, pleasant, and cooperative. Patient is in no acute distress and has improved hygiene and grooming Behavior: Patient is calmly seated without any agitated behavior. Speech: Patient's speech is fluent and nonpressured. Mood/Affect: Patient reports their mood is "better", affect is congruent and euthymic. Suicidality/Homicidality: Patient denies having any suicidal or homicidal ideation intent or plan. Perceptions: Patient denies any auditory or visual hallucinations. Though content/process: There is no evidence of any delusional thought content and thought process is linear and goal-directed. more future oriented Memory and concentration: AOX3, grossly intact for the purposes of this session. Can spell "WORLD" backwards correctly. Judgment and insight: improved with guarded prognosis Impression: Major depressive disorder recurrent severe without psychotic features Overdose of benzodiazepine Cannabis use disorder mild Nicotine dependence Plan: -Continue with discharge today as patient has improved and stabilized psychiatrically and is not currently an imminent threat to himself and/or others. Patient will remain at chronically elevated risk for harm to self and/or others due to her impulsivity and substance abuse. -Continue medications: Zoloft 50 mg daily for mood/anxiety, lithium 150 mg twice a day for mood stabilization/mood adjunct, trazodone 100 mg daily at bedtime when necessary for insomnia. -Patient was counseled on the need for medication compliance and appropriate follow-up at mental health and also primary care for medical issues. Patient verbalized understanding and agreed. -Social work to arrange for and conduct family meeting to ensure safety upon discharge and answer any questions/concerns. Social work also to arrange for patients follow up appointments for psychiatric care along with follow up with primary care provider. -Patient counseled on abstaining from recreational drugs and marijuana and alcohol. Was informed/educated on the adverse effects on their physical and mental health. Patient verbally agreed and understood. -Patient was instructed to return to the hospital or seek immediate medical care if their psychiatric or medical symptoms do worsen or reoccur. Allergies Allergy/AdvReac Type Severity Reaction Status Date / Time No Known Allergies Allergy Verified 12/20/22 22:[address] Glu mg/dL 100 12/24/22 18:36 Hemoglobin A1c 5.1 % (0.0-6.0) 12/24/22 18:36 Triglycerides 196.00 mg/dL (0.00-149.00) H 12/24/22 06:35 Cholesterol 205.00 mg/dL (0.00-200.00) H 12/24/22 06:35 LDL Cholesterol, Calc 135.6 mg/dL (0.0-131.0) H 12/24/22 06:35 VLDL Cholesterol, Calc 39.20 mg/dL (5.00-40.00) 12/24/22 06:35 HDL Cholesterol 30.20 mg/dL (40.00-60.00) L 12/24/22 06:35 Cholesterol/HDL Ratio 6.79 Ratio 12/24/22 06:35 TSH 2.120 mIU/L (0.465-4.680) 12/24/22 06:35 Vital Signs Temp 98.7 F 12/27/22 05:00 Pulse 86 12/27/22 05:00 Resp 16 12/27/22 05:00 BP 126/61 12/27/22 05:00 Pulse Ox 100 12/27/22 05:00 FiO2 Patient Condition at Discharge: Stable Plan - Discharge Summary Discharge Rx Participant: Yes New Discharge Prescriptions: New Sertraline [Zoloft] 50 mg PO DAILY 14 Days #14 tab traZODone HCL [Desyrel] 100 mg PO HS PRN 14 Days #14 tab PRN Reason: Insomnia Nicotine 14Mg/24Hr Patch [Habitrol] 1 patch TRANSDERM DAILY 14 Days #14 patch [place] Carbonate 150 mg PO BID 14 Days #14 cap Continue Butalb/APAP/Caff 50-325-40Mg [Fioricet 50-325-40] 1 tab PO BID PRN PRN Reason: Migraine Headache PARoxetine HCL [Paxil] 40 mg PO DAILY Botox 1 dose SQ Q90D Ergocalciferol (Vitamin D2) [Drisdol (50,000 Iu)] 1,250 mcg PO Q7D SUMAtriptan succinate [Imitrex] 100 mg PO BID PRN PRN Reason: Migraine Headache Ketoconazole 2% Shampoo [Nizoral] 1 applic TOPICAL DAILY PRN PRN Reason: SCALP Discontinued buPROPion XL [Wellbutrin XL] 300 mg PO DAILY ALPRAZolam [Xanax] 0.25 mg PO DAILY PRN PRN Reason: Anxiety Discharge Medication List Botox 1 dose SQ Q90D 12/20/22 [History] Butalb/APAP/Caff 50-325-40Mg [Fioricet 50-325-40] 1 tab PO BID PRN 12/20/22 [History] Ergocalciferol (Vitamin D2) [Drisdol (50,000 Iu)] 1,250 mcg PO Q7D 12/20/22 [History] Ketoconazole 2% Shampoo [Nizoral] 1 applic TOPICAL DAILY PRN 12/20/22 [History] PARoxetine HCL [Paxil] 40 mg PO DAILY 12/20/22 [History] SUMAtriptan succinate [Imitrex] 100 mg PO BID PRN 12/20/22 [History] [place] Carbonate 150 mg PO BID 14 Days #14 cap 12/27/22 [Rx] Nicotine 14Mg/24Hr Patch [Habitrol] 1 patch TRANSDERM DAILY 14 Days #14 patch 12/27/22 [Rx] Sertraline [Zoloft] 50 mg PO DAILY 14 Days #14 tab 12/27/22 [Rx] traZODone HCL [Desyrel] 100 mg PO HS PRN 14 Days #14 tab 12/27/22 [Rx] Follow up Appointment(s)/Referral(s): [facility] [Outside] - 12/31/22 10:00 am (with Giovanna) Activity/Diet/Wound Care/Special Instructions: Avoid the use of street drugs and alcohol. Take all medications as prescribed. When you are in need of refills on your medications, please contact your medical provider and/or outpatient psychiatrist to have this done. Please go to scheduled outpatient appointments for aftercare treatment. If symptoms return or become worse, call the crisis line at and/or go to the nearest emergency room for evaluation. Discharge Disposition: HOME SELF-CARE
[2022-12-27] MEDS: SUMAtriptan succinate 50 MG TAB PO PRN (11:15)
== END 2022-12-27 13:09 | disposition home or self-care (01) | DRG 751 ==
LOC: 3MHU 20:28
PROVIDERS: ADMIT Psychiatry & Neurology Psychiatry; ATTEND Psychiatry & Neurology Psychiatry
DX: F33.2 Major depressive disorder, recurrent severe without psychotic features (principal); F12.10 Cannabis abuse, uncomplicated; F17.200 Nicotine dependence, unspecified, uncomplicated; F41.9 Anxiety disorder, unspecified; G43.909 Migraine, unspecified, not intractable, without status migrainosus; T42.4X2A Poisoning by benzodiazepines, intentional self-harm, initial encounter; Z78.1 Physical restraint status
CPT/HCPCS: 80061; 83036; 84443

== ENCOUNTER 2023-06-22 23:12 | Emergency (ER) | payer MEDICARE, OTHER ==
[2023-06-22] MEDS ORDERED: SODIUM CHLORIDE 0.9% 500 ML 500 ML IV ONE (23:36)
--- NOTE | 2023-06-22 23:37 | ED ---
General Adult HPI - General Chief complaint: Abdominal Pain Stated complaint: Abdominal Pain, Kidney Stone, Infection Time Seen by Provider: 06/22/23 23:19 Source: patient, RN notes reviewed, old records reviewed Mode of arrival: ambulatory Limitations: no limitations - History of Present Illness Initial comments: 43-year-old female presenting for evaluation of right flank pain which radiates to the groin. Patient was seen at outside hospital earlier today she had laboratory testing, urinalysis and computed tomography scan. She was called at home with the results of computed tomography scan indicating that she had an obstructing kidney stone. She had been treated over the past one week for urinary tract infection. She had one episode of vomiting. No measured fever. - Related Data Home Medications Medication Instructions Recorded Confirmed Botox 1 dose SQ Q90D 12/20/22 12/23/22 Butalb/APAP/Caff 50-325-40Mg 1 tab PO BID PRN 12/20/22 12/23/22 [Fioricet 50-325-40] Ergocalciferol (Vitamin D2) 1,250 mcg PO Q7D 12/20/22 12/23/22 [Drisdol (50,000 Iu)] Ketoconazole 2% Shampoo [Nizoral] 1 applic TOPICAL DAILY PRN 12/20/22 12/23/22 PARoxetine HCL [Paxil] 40 mg PO DAILY 12/20/22 12/23/22 SUMAtriptan succinate [Imitrex] 100 mg PO BID PRN 12/20/22 12/23/22 Previous Rx's Medication Instructions Recorded [place] Carbonate 150 mg PO BID 14 Days #14 cap 12/27/22 Nicotine 14Mg/24Hr Patch [Habitrol] 1 patch TRANSDERM DAILY 14 Days 12/27/22 #14 patch Sertraline [Zoloft] 50 mg PO DAILY 14 Days #14 tab 12/27/22 traZODone HCL [Desyrel] 100 mg PO HS PRN 14 Days #14 tab 12/27/22 HYDROcodone/APAP 5-325MG [[place] 1 tab PO Q6HR PRN #12 tab 06/23/23 5-325] Ketorolac [Toradol] 10 mg PO Q6HR #16 tab 06/23/23 Allergies Allergy/AdvReac Type Severity Reaction Status Date / Time No Known Allergies Allergy Verified 06/22/23 23:16 Review of Systems ROS Statement: Those systems with pertinent positive or pertinent negative responses have been documented in the HPI. ROS Other: All systems not noted in ROS Statement are negative. Past Medical History Past Medical History: No Reported History Additional Past Medical History / Comment(s): migraines History of Any Multi-Drug Resistant Organisms: None Reported Past Surgical History: Tonsillectomy Additional Past Surgical History / Comment(s): sinus surgery Past Anesthesia/Blood Transfusion Reactions: No Reported Reaction Past Psychological History: Anxiety, Depression Smoking Status: Vaper Past Alcohol Use History: Rare Past Drug Use History: Marijuana - Past Family History Father Family Medical History: No Reported History General Exam Limitations: no limitations Head exam: Present: atraumatic, normocephalic Eye exam: Present: normal appearance, PERRL Neck exam: Present: normal inspection. Absent: tenderness, meningismus Respiratory exam: Present: normal lung sounds bilaterally. Absent: respiratory distress, wheezes Cardiovascular Exam: Present: regular rate, normal rhythm GI/Abdominal exam: Present: soft. Absent: distended, tenderness Neurological exam: Present: alert, oriented X3, CN II-XII intact. Absent: motor sensory deficit Psychiatric exam: Present: normal affect, normal mood Skin exam: Present: warm, dry, intact Course Vital Signs 06/22/23 06/23/23 06/23/23 23:14 02:19 03:49 Temperature 99 F 98.7 F Pulse Rate 103 H 66 67 Respiratory 18 18 18 Rate Blood Pressure 120/74 116/84 129/81 O2 Sat by Pulse 99 100 100 Oximetry 06/23/23 06/23/23 04:00 05:00 Temperature Pulse Rate 70 65 Respiratory 17 16 Rate Blood Pressure 129/81 118/76 O2 Sat by Pulse 98 96 Oximetry Medical Decision Making - Medical Decision Making Was pt. sent in by a medical professional or institution (, PA, DAIRY FARMER, urgent care, hospital, or fpc...) When possible be specific @ -No Did you speak to anyone other than the patient for history (EMS, parent, family, police, friend...)? What history was obtained from this source @ -No Did you review nursing and triage notes (agree or disagree)? Why? @ -I reviewed and agree with nursing and triage notes Were old charts reviewed (outside hosp., previous admission, EMS record, old EKG, old radiological studies, urgent care reports/EKG's, fpc records)? Report findings @ -No old charts were reviewed Differential Diagnosis (chest pain, altered mental status, abdominal pain women, abdominal pain men, vaginal bleeding, weakness, fever, dyspnea, syncope, headache, dizziness, GI bleed, back pain, seizure, CVA, palpatations, mental health, musculoskeletal)? @ -Differential Abdominal Pain Women: Appendicitis, Cholecystitis, diverticulosis, ischemic bowel, pancreatitis, hepatitis, UTI, gastroenteritis, AAA, incarcerated hernia, bowel obstruction, constipation, inflammatory bowel, hepatitis, peptic ulcer disease, splenic infarction, perforated viscus, vulvitis, ovarian torsion, PID, kidney stone, placenta abruption, this is not meant to be an all-inclusive list EKG interpreted by me (3pts min.). @ -As above X-rays interpreted by me (1pt min.). @ -None done CT interpreted by me (1pt min.). @ -[CT reviewed from outside hospital indicating that there is a 6 x 10 mm obstructing stone in the right mid ureter with hydronephrosis. U/S interpreted by me (1pt. min.). @ -None done What testing was considered but not performed or refused? (CT, X-rays, U/S, labs)? Why? @ -None What meds were considered but not given or refused? Why? @ -None Did you discuss the management of the patient with other professionals (professionals i.e. , PA, DAIRY FARMER, lab, RT, psych nurse, geriatric social worker, audiovisual lead technician, teacher, staff command and control officer, medical case worker)? Give summary @ -No Was smoking cessation discussed for >3mins.? @ -No Was critical care preformed (if so, how long)? @ -No Were there social determinants of health that impacted care today? How? (Homeles sness, low income, unemployed, alcoholism, drug addiction, transportation, low edu. Level, literacy, decrease access to med. care, [place] [facility], rehab)? @ -No Was there de-escalation of care discussed even if they declined (Discuss DNR or withdrawal of care, Hospice)? DNR status @ -No What co-morbidities impacted this encounter? (DM, HTN, Smoking, COPD, CAD, Cancer, CVA, ARF, Chemo, Hep., AIDS, mental health diagnosis, sleep apnea, morbid obesity)? @ -None Was patient admitted / discharged? Hospital course, mention meds given and route, prescriptions, significant lab abnormalities, going to OR and other pertinent info. @ -Patient with obstructing stone visualized on CT at outside hospital. Patient well-appearing, she has normal CBC, normal CMP. Urinalysis is hem orrhagic. She was placed on antibiotics at outside hospital. She's given a dose of IV antibiotics in the emergency department. I discussed case with Dr. Hollingsworth covering for urology, patient felt to be stable for discharge with close outpatient follow-up. She's given strict return parameters including fever, worsening pain, vomiting. Undiagnosed new problem with uncertain prognosis? @ -No Drug Therapy requiring intensive monitoring for toxicity (Heparin, Nitro, Insulin, Cardizem)? @ -No Were any procedures done? @ -No Diagnosis/symptom? @ -[Obstructing renal calculus Acute, or Chronic, or Acute on Chronic? @ Acute Uncomplicated (without systemic symptoms) or Complicated (systemic symptoms)? @ -default Side effects of treatment? @ -No Exacerbation, Progression, or Severe Exacerbation? @ -No Poses a threat to life or bodily function? How? (Chest pain, [place], GA, pneumonia, PE, COPD, DKA, ARF, appy, cholecystitis, CVA, Diverticulitis, Homicidal, Suicidal, threat to staff... and all critical care pts) @ -[Low risk - Lab Data Result diagrams: 06/22/23 23:37 06/22/23 23:37 Lab Results 06/22/23 06/22/23 06/22/23 Range/Units 23:37 23:37 23:37 WBC 8.3 (3.8-10.6) k/uL RBC 4.03 (3.80-5.40) m/uL Hgb 12.4 (11.4-16.0) gm/dL Hct 35.9 (34.0-46.0) % MCV 89.2 (80.0-100.0) fL MCH 30.8 (25.0-35.0) pg MCHC 34.5 (31.0-37.0) g/dL RDW 13.1 (11.5-15.5) % Plt Count 327 (150-450) k/uL MPV 7.7 Neutrophils % 72 % Lymphocytes % 19 % Monocytes % 7 % Eosinophils % 0 % Basophils % 0 % Neutrophils # 5.9 (1.3-7.7) k/uL Lymphocytes # 1.5 (1.0-4.8) k/uL Monocytes # 0.6 (0-1.0) k/uL Eosinophils # 0.0 (0-0.7) k/uL Basophils # 0.0 (0-0.2) k/uL Sodium 138 (137-145) mmol/L Potassium 3.7 (3.5-5.1) mmol/L Chloride 104 (98-107) mmol/L Carbon Dioxide 24 (22-30) mmol/L Anion Gap 10 mmol/L BUN 12 (7-17) mg/dL Creatinine 0.69 (0.52-1.04) mg/dL Est GFR (CKD-EPI)AfAm >90 (>60 ml/min/1.73 sqM) Est GFR (CKD-EPI)NonAf >90 (>60 ml/min/1.73 sqM) Glucose 104 H (74-99) mg/dL Plasma Lactic Acid [place] (0.7-2.0) mmol/L Calcium 9.0 (8.4-10.2) mg/dL Total Bilirubin 0.4 (0.2-1.3) mg/dL AST 27 (14-36) U/L ALT 28 (4-34) U/L Alkaline Phosphatase 71 (38-126) U/L Total Protein 6.8 (6.3-8.2) g/dL Albumin 4.0 (3.5-5.0) g/dL Urine Color [place] Urine Appearance Clear (Clear) Urine RBC >182 H (0-5) /hpf Urine WBC >182 H (0-5) /hpf Ur Squamous Epith Cells 40 H (0-4) /hpf Urine Mucus Rare H (None) /hpf 06/22/23 Range/Units 23:37 WBC (3.8-10.6) k/uL RBC (3.80-5.40) m/uL Hgb (11.4-16.0) gm/dL Hct (34.0-46.0) % MCV (80.0-100.0) fL MCH (25.0-35.0) pg MCHC (31.0-37.0) g/dL RDW (11.5-15.5) % Plt Count (150-450) k/uL MPV Neutrophils % % Lymphocytes % % Monocytes % % Eosinophils % % Basophils % % Neutrophils # (1.3-7.7) k/uL Lymphocytes # (1.0-4.8) k/uL Monocytes # (0-1.0) k/uL Eosinophils # (0-0.7) k/uL Basophils # (0-0.2) k/uL Sodium (137-145) mmol/L Potassium (3.5-5.1) mmol/L Chloride (98-107) mmol/L Carbon Dioxide (22-30) mmol/L Anion Gap mmol/L BUN (7-17) mg/dL Creatinine (0.52-1.04) mg/dL Est GFR (CKD-EPI)AfAm (>60 ml/min/1.73 sqM) Est GFR (CKD-EPI)NonAf (>60 ml/min/1.73 sqM) Glucose (74-99) mg/dL Plasma Lactic Acid [place] 1.1 (0.7-2.0) mmol/L Calcium (8.4-10.2) mg/dL Total Bilirubin (0.2-1.3) mg/dL AST (14-36) U/L ALT (4-34) U/L Alkaline Phosphatase (38-126) U/L Total Protein (6.3-8.2) g/dL Albumin (3.5-5.0) g/dL Urine Color Urine Appearance (Clear) Urine RBC (0-5) /hpf Urine WBC (0-5) /hpf Ur Squamous Epith Cells (0-4) /hpf Urine Mucus (None) /hpf Disposition Clinical Impression: Calculus of kidney Disposition: HOME SELF-CARE Condition: Good Instructions (If sedation given, give patient instructions): Kidney Stones (ED) Prescriptions: HYDROcodone/APAP 5-325MG [[place] 5-325] 1 tab PO Q6HR PRN #12 tab PRN Reason: Pain Ketorolac [Toradol] 10 mg PO Q6HR #16 tab Is patient prescribed a controlled substance at d/c from ED?: No Referrals: Margy Hernandez MD [Primary Care Provider] - 1-2 days Nasim Hollingsworth MD [STAFF PHYSICIAN] - 1-2 days Time of Disposition: :04
[2023-06-23] MEDS ORDERED: HYDROmorphone 0.5 MG/0.5 ML SYRINGE IVP STA (00:16)
[2023-06-23 00:30] LABS: Appearance,Urine Clear (Clear); Color,Urine Orange; Mucus,Urine Rare /hpf; RBC,Urine >182 /hpf (0-5); Squamous Epithelial Cell,Urine 40 /hpf (0-4); WBC,Urine >182 /hpf (0-5)
[2023-06-23 00:39] LABS: ALT 28 U/L (4-34); AST 27 U/L (14-36); African American GFR (CKD) >90 (>60 ml/min/1.73 sqM); Alkaline Phosphatase 71 U/L (38-126); Anion Gap 10 mmol/L; Blood Urea Nitrogen 12 mg/dL (7-17); Carbon Dioxide 24 mmol/L (22-30); Chloride 104 mmol/L (98-107); Glucose 104 mg/dL (74-99); Non-African American GFR(CKD) >90 (>60 ml/min/1.73 sqM); Potassium 3.7 mmol/L (3.5-5.1); Sodium 138 mmol/L (137-145); Total Bilirubin 0.4 mg/dL (0.2-1.3); Total Protein 6.8 g/dL (6.3-8.2)
[2023-06-23 00:44] LABS: Basophils % (A) 0 %; Eosinophils % (A) 0 %; HCT 35.9 % (34.0-46.0); HGB 12.4 gm/dL (11.4-16.0); Lymphocytes # (A) 1.5 k/uL (1.0-4.8); Lymphocytes % (A) 19 %; MCH 30.8 pg (25.0-35.0); MCHC 34.5 g/dL (31.0-37.0); MCV 89.2 fL (80.0-100.0); Mean Platelet Volume 7.7; Monocytes # (A) 0.6 k/uL (0-1.0); Monocytes % (A) 7 %; Neutrophils # (A) 5.9 k/uL (1.3-7.7); Neutrophils % (A) 72 %; Platelet Count 327 k/uL (150-450); RBC 4.03 m/uL (3.80-5.40); RDW 13.1 % (11.5-15.5); WBC 8.3 k/uL (3.8-10.6)
[2023-06-23] MEDS ORDERED: cefTRIAXone IN SWFI 1,000 MG/10 ML SYRINGE IVP STA (01:27)
[2023-06-23] MEDS ORDERED: HYDROmorphone 1 MG/ML 1 ML SYRINGE IVP STA (01:32)
[2023-06-23] MEDS ORDERED: KETOROLAC 15 MG/ML 1 ML VIAL IVP STA (03:37)
[2023-06-23 06:30] VITALS: BP 116/59; PULSE 85; RESP 17; TEMP 97.7
== END 2023-06-23 06:26 | disposition home or self-care (01) ==
LOC: EC 23:12
DX: N20.0 Calculus of kidney (principal); F17.290 Nicotine dependence, other tobacco product, uncomplicated; F12.90 Cannabis use, unspecified, uncomplicated; Z86.59 Personal history of other mental and behavioral disorders
CPT/HCPCS: 36415; 80053; 83605; 85025; 81001; 87040; 87086; 87077; 87186; 99284; 96374; 96375 ×2; 96376; 96361; J0696; J1170 ×2; J1885

== ENCOUNTER → 2023-06-24 | Outpatient (CLI) | payer MEDICARE, OTHER ==
--- NOTE | 2023-06-24 14:53 | XR ---
EXAMINATION TYPE: XR KUB DATE OF EXAM: 06/24/2023 1:36 PM CLINICAL INDICATION:Female, 43 years old with history of N20.1 calculus; [facility] COMPARISON: 12/20/2022. TECHNIQUE: One radiographic view of the abdomen was obtained. FINDINGS: The bowel gas pattern is nonspecific without dilated loops of small or large bowel. There i s no evidence for organomegaly or pneumoperitoneum. The osseous structures are intact. No abnormal calcifications are present. Fecal material and gas are demonstrated throughout the colon and rectum. IMPRESSION: Nonspecific bowel gas pattern without radiographic evidence for acute process.
== END | disposition home or self-care (01) ==
LOC: RADXRMAIN 12:55
PROVIDERS: ATTEND Urology
DX: N20.1 Calculus of ureter (principal); R14.0 Abdominal distension (gaseous)
CPT/HCPCS: 74018

== ENCOUNTER 2023-06-25 12:14 | Day surgery (SDC) | payer MEDICARE, OTHER ==
--- NOTE | 2023-06-24 17:25 | P.GSHP ---
History of Present Illness H&P Date: 06/24/23 Chief Complaint: Right flank pain The patient is a 43-year-old white female with a history of kidney stones. Urine cultures on 4 occasions since March 2022 have shown Proteus mirabilis. She now presents with right flank pain and dysuria. Urine culture shows gram- negative bacilli. CT scan shows moderate to severe right hydronephrosis due to a 6 x 10 mm right mid-ureteral calculus. - Constitutional Constitutional: Denies chills, Denies fever - Gastrointestinal Gastrointestinal: Reports nausea - Genitourinary (Female) Genitourinary: Reports flank pain, Reports hematuria, Reports kidney stones - Neurological Neurological: Reports migraines Past Medical History Past Medical History: No Reported History Additional Past Medical History / Comment(s): migraines History of Any Multi-Drug Resistant Organisms: None Reported Past Surgical History: Tonsillectomy Additional Past Surgical History / Comment(s): sinus surgery Past Anesthesia/Blood Transfusion Reactions: No Reported Reaction Past Psychological History: Anxiety, Depression Smoking Status: Vaper Past Alcohol Use History: Rare Past Drug Use History: Marijuana - Past Family History Father Family Medical History: No Reported History Medications and Allergies Home Medications Medication Instructions Recorded Confirmed Type Botox 1 dose SQ Q90D 12/20/22 12/23/22 History Butalb/APAP/Caff 50-325-40Mg 1 tab PO BID PRN 12/20/22 12/23/22 History [Fioricet 50-325-40] Ergocalciferol (Vitamin D2) 1,250 mcg PO Q7D 12/20/22 12/23/22 History [Drisdol (50,000 Iu)] Ketoconazole 2% Shampoo [Nizoral] 1 applic TOPICAL DAILY PRN 12/20/22 12/23/22 History PARoxetine HCL [Paxil] 40 mg PO DAILY 12/20/22 12/23/22 History SUMAtriptan succinate [Imitrex] 100 mg PO BID PRN 12/20/22 12/23/22 History [place] Carbonate 150 mg PO BID 14 Days #14 cap 12/27/22 Rx Nicotine 14Mg/24Hr Patch [Habitrol] 1 patch TRANSDERM DAILY 14 Days 12/27/22 Rx #14 patch Sertraline [Zoloft] 50 mg PO DAILY 14 Days #14 tab 12/27/22 Rx traZODone HCL [Desyrel] 100 mg PO HS PRN 14 Days #14 tab 12/27/22 Rx HYDROcodone/APAP 5-325MG [Benson 1 tab PO Q6HR PRN #12 tab 06/23/23 Rx 5-325] Ketorolac [Toradol] 10 mg PO Q6HR #16 tab 06/23/23 Rx Allergies Allergy/AdvReac Type Severity Reaction Status Date / Time No Known Allergies Allergy Verified 06/22/23 23:16 Surgical - Exam - General well developed, well nourished, moderate distress - Neck no masses, trachea midline - Respiratory normal respiratory effort - Abdomen Abdomen: soft, tender (Mild right lower quadrant tenderness), no guarding, no rigid, no rebound - Psychiatric oriented to time, oriented to person, oriented to place, speech is normal, memory intact Results - Imaging CT scan - abdomen: report reviewed, image reviewed Assessment and Plan (1) Calculus of ureter Status: Acute Code(s): N20.1 - CALCULUS OF URETER SNOMED Code(s): 43106811 (2) Hydronephrosis with renal and ureteral calculous obstruction Status: Acute Code(s): N13.2 - HYDRONEPHROSIS WITH RENAL AND URETERAL CALCULOUS OBSTRUCTION SNOMED Code(s): 782511400 Plan: I had a lengthy discussion with the patient, explaining that she will require insertion of a right ureteral stent to relieve ureteral obstruction and eradicate her UTI. Arrangements can then be made for her to undergo elective ureteroscopic removal of her right midureteral calculus, which is likely infected. Risks associated with this include anesthesia, infection, inability to place a stent, and ureteral injury. It was made clear to her that ureteroscopy will be performed only if necessary to place a ureteral stent, to avoid the need for a percutaneous nephrostomy tube. She will continue to take Keflex, pending the final urine culture result.
[~2023-06-25 12:14] MED LIST: GENTAMICIN 100 MG in SODIUM CHLORIDE 0.9% 100 ML IVPB PRN
[2023-06-25] MEDS ORDERED: LACTATED RINGERS 1,000 ML IV ONE (15:04)
[2023-06-25] MEDS ORDERED: fentaNYL (PF) 50 MCG/ML 2 ML AMP IVP ONE (15:05)
[2023-06-25] MEDS ORDERED: KETOROLAC 15 MG/ML 1 ML VIAL ONE (15:43)
[2023-06-25] MEDS ORDERED: KETOROLAC 15 MG/ML 1 ML VIAL IVP ONE (15:44)
[2023-06-25] MEDS ORDERED: LIDOCAINE 1% INJ 10MG/ML (20 ML MDV) ONE (16:24)
[2023-06-25] MEDS ORDERED: fentaNYL (PF) 50 MCG/ML 2 ML AMP ONE (16:24)
[2023-06-25] MEDS ORDERED: PROPOFOL 10 MG/ML 20 ML VIAL IV ONE (16:24)
[2023-06-25] MEDS ORDERED: MIDAZOLAM 2 MG/2 ML VIAL ONE (16:24)
[2023-06-25] MEDS ORDERED: IOPAMIDOL-370 100ML BTL MISCELLANE ONE (16:44)
--- NOTE | 2023-06-25 17:04 | P.OP ---
Date of Procedure: 06/25/23 Preoperative Diagnosis: Right hydronephrosis secondary to right ureteral calculus Postoperative Diagnosis: Same Procedure(s) Performed: Cystoscopy, right ureteral stent insertion Anesthesia: LURDESA Surgeon: Kamron Wheeler Estimated Blood Loss (ml): 0 IV fluids (ml): 300 Pathology: none sent Condition: stable Disposition: PACU Indications for Procedure: The patient is a 43-year-old white female with a history of kidney stones. Urine cultures on 4 occasions since March 2022 have shown Proteus mirabilis. She now presents with right flank pain and dysuria. Urine culture shows gram- negative bacilli. CT scan shows moderate to severe right hydronephrosis due to a 6 x 10 mm right mid-ureteral calculus. Operative Findings: Obstructing right midureteral calculus. Successful right ureteral stent insertion. Description of Procedure: The patient was taken to the operating room and placed in the dorsolithotomy position, with legs supported in Jeovanny stirrups. The external genitalia was prepped and draped sterilely. The 30 lens was used to introduce the 22-Syriac Stortz cystoscopic sheath through the urethra and into the bladder under direct vision. The bladder was examined in its entirety. Both ureteral orifices were of normal anatomic location and configuration. No tumors or foreign bodies were seen. An angle-tip 0.035 inch Glidewire was passed through the cystoscope. The right ureteral orifice was cannulated, and the Glidewire was slowly advanced up to the calculus, which was visible within the mid ureter at the pelvic inlet. With some manipulation, it was possible to advance the Glidewire beyond the calculus and up to the right renal pelvis, were coiled. A 26 cm, 6-Syriac double-J ureteral stent was placed over the wire. Proper stent positioning was verified fluoroscopically and endoscopically. The bladder was emptied and the cystoscope removed. The patient tolerated the procedure well was taken to the recovery room in stable condition.
[2023-06-25 17:27] VITALS: TEMP 96.9
--- NOTE | 2023-06-25 18:07 | FL ---
EXAMINATION TYPE: FL guidance operating room DATE OF EXAM: 06/25/2023 Comparison: Clinical History: 43-year-old female RT ureteral stent insertion Findings: Right side stent placement 17 sec fl .[id number] mGycm2 DAP Single image provided Impression: Fluoroscopy for urology procedure as above.
[2023-06-25 18:16] VITALS: BP 139/77; PULSE 66; RESP 17
== END 2023-06-25 18:09 | disposition home or self-care (01) ==
LOC: OR 12:14
PROVIDERS: ATTEND Urology
DX: N13.2 Hydronephrosis with renal and ureteral calculous obstruction (principal); F41.9 Anxiety disorder, unspecified; F32.A Depression, unspecified; Z87.442 Personal history of urinary calculi; Z79.899 Other long term (current) drug therapy
CPT/HCPCS: 52332; C2625; C1769; J2250; J0690; J2001; J3010; J1885; J2704; Q9967

== ENCOUNTER 2023-07-10 09:23 | Day surgery (SDC) | payer MEDICARE, OTHER ==
--- NOTE | 2023-07-03 18:43 | P.GSHP ---
History of Present Illness H&P Date: 07/03/23 Chief Complaint: Flank pain The patient is a 43-year-old white female with a history of kidney stones. Urine cultures on 4 occasions since March 2022 have shown Proteus mirabilis. She now presents with right flank pain and dysuria. CT scan showed moderate to severe right hydronephrosis due to a 6 x 10 mm right mid-ureteral calculus. She underwent right ureteral stent insertion on 06/25/2023 and continues to take Bactrim DS. She now comes for cystoscopy, right ureteral stent removal, right ureteroscopy with Holmium laser lithotripsy and possible stone basketing. - Genitourinary (Female) Genitourinary: Reports dysuria, Reports flank pain, Reports hematuria, Reports kidney stones - Neurological Neurological: Reports migraines Past Medical History Past Medical History: No Reported History Additional Past Medical History / Comment(s): migraines History of Any Multi-Drug Resistant Organisms: None Reported Past Surgical History: Tonsillectomy Additional Past Surgical History / Comment(s): sinus surgery Past Anesthesia/Blood Transfusion Reactions: No Reported Reaction Past Psychological History: Anxiety, Depression Smoking Status: Vaper Past Alcohol Use History: Rare Past Drug Use History: Marijuana - Past Family History Father Family Medical History: No Reported History Medications and Allergies Home Medications Medication Instructions Recorded Confirmed Type Ergocalciferol (Vitamin D2) 1,250 mcg PO Q7D 12/20/22 06/25/23 History [Drisdol (50,000 Iu)] Ketoconazole 2% Shampoo [Nizoral] 1 applic TOPICAL DAILY PRN 12/20/22 06/25/23 History SUMAtriptan succinate [Imitrex] 100 mg PO BID PRN 12/20/22 06/25/23 History traZODone HCL [Desyrel] 100 mg PO HS PRN 14 Days #14 tab 12/27/22 06/25/23 Rx HYDROcodone/APAP 5-325MG [[place] 1 tab PO Q6HR PRN #12 tab 06/23/23 06/25/23 Rx 5-325] Ketorolac [Toradol] 10 mg PO Q6HR #16 tab 06/23/23 06/25/23 Rx Divalproex Sodium [Depakote] 125 mg PO BID 11/22/23 11/22/23 History Escitalopram [Lexapro] 20 mg PO DAILY 06/25/23 06/25/23 History Escitalopram [Lexapro] 20 mg PO DAILY 06/25/23 06/25/23 History Allergies Allergy/AdvReac Type Severity Reaction Status Date / Time No Known Allergies Allergy Verified 06/25/23 14:32 Surgical - Exam - General well developed, well nourished, no distress - Neck no masses, trachea midline - Respiratory normal respiratory effort - Abdomen Abdomen: soft, tender (Mild right lower quadrant tenderness), no guarding, no rigid, no rebound - Genitourinary normal external genitalia - Psychiatric oriented to time, oriented to person, oriented to place, speech is normal, too ry intact Results - Imaging CT scan - abdomen: report reviewed, image reviewed Assessment and Plan (1) Calculus of ureter Status: Acute Code(s): N20.1 - CALCULUS OF URETER SNOMED Code(s): 14080042 Plan: I had a lengthy discussion with the patient, explaining that she will undergo elective ureteroscopic removal of her right midureteral calculus, which is likely infected, along with her ureteral stent. Risks associated with this include anesthesia, infection, inability to entirely remove the calculus, and ureteral injury. She will continue to take Bactrim DS.
[~2023-07-10 09:23] MED LIST changes: -GENTAMICIN 100 MG in SODIUM CHLORIDE 0.9% 100 ML IVPB PRN; +LACTATED RINGERS 1,000 ML IV SCH
--- NOTE | 2023-07-10 10:02 | XR ---
EXAMINATION TYPE: XR KUB DATE OF EXAM: 07/10/2023 HISTORY: Pain Comparison: None.Single KUB is submitted for interpretation. Findings: Right renal calculi: None Visualized. Limited by overlying bowel content. Right ureteral calculi: Double pigtail right ureteral stent is in place. No definite calculus along t he course of the stent. Left renal calculi: None Visualized. Limited by overlying bowel content. Left ureteral calculi: None Visualized. Pelvic calcifications: None Visualized. Bowel gas pattern is unremarkable. No free air. No mass effects. IMPRESSION: 1. As above
[2023-07-10] MEDS: LACTATED RINGERS 1,000 ML IV ONE ×2 (10:15→13:46)
[2023-07-10] MEDS: ONDANSETRON 4 MG/2 ML VIAL IVP ONE (10:34)
[2023-07-10] MEDS: DEXAMETHASONE SOD PHOSPHATE 4 MG/ML 1 ML VIAL IV ONE (10:34)
[2023-07-10] MEDS ORDERED: PROPOFOL 10 MG/ML 20 ML VIAL IV ONE (11:31)
[2023-07-10] MEDS ORDERED: SUCCINYLCHOLINE CHLORIDE 200 MG/10 ML VIAL IV ONE (11:31)
[2023-07-10] MEDS ORDERED: ROCURONIUM 10 MG/ML (5 ML VIAL) IV ONE (11:31)
[2023-07-10] MEDS ORDERED: GLYCOPYRROLATE 0.2 MG/ML 2 ML VIAL ONE (11:31)
[2023-07-10] MEDS ORDERED: NEOSTIGMINE 1 MG/ML 10 ML VIAL ONE (11:31)
[2023-07-10] MEDS ORDERED: ePHEDrine 50 MG/ML 1 ML VIAL ONE (11:31)
[2023-07-10] MEDS ORDERED: fentaNYL (PF) 50 MCG/ML 2 ML AMP ONE (11:31)
[2023-07-10] MEDS ORDERED: MIDAZOLAM 2 MG/2 ML VIAL ONE (11:31)
[2023-07-10] MEDS ORDERED: LIDOCAINE 1% INJ 10MG/ML (20 ML MDV) ONE (11:31)
--- NOTE | 2023-07-10 13:17 | P.OP ---
Date of Procedure: 07/10/23 Preoperative Diagnosis: Right ureteral calculus Postoperative Diagnosis: Same Procedure(s) Performed: Cystoscopy, right ureteral stent removal, right ureteroscopy with Holmium laser lithotripsy and stone basketing Anesthesia: GISELL Surgeon: Kamron Wheeler Estimated Blood Loss (ml): 10 IV fluids (ml): 700 Pathology: other (Right ureteral calculus fragment, sent for chemical analysis) Condition: stable Disposition: PACU Indications for Procedure: The patient is a 43-year-old white female with a history of kidney stones. Urine cultures on 4 occasions since March 2022 have shown Proteus mirabilis. She now presents with right flank pain and dysuria. CT scan showed moderate to severe right hydronephrosis due to a 6 x 10 mm right mid-ureteral calculus. She underwent right ureteral stent insertion on 06/25/2023 and continues to take Bactrim DS. She now comes for cystoscopy, right ureteral stent removal, right ureteroscopy with Holmium laser lithotripsy and possible stone basketing. Operative Findings: Right proximal ureteral calculus, fragmented and removed completely. Calculus appears to be of struvite composition. Description of Procedure: The patient was taken to the operating room and placed in the dorsolithotomy position, with legs supported in Jeovanny stirrups. The external genitalia was prepped and draped sterilely. The 30 lens was used to introduce the 21-Burkinan Gupta cystoscopic sheath through the urethra and into the bladder under direct vision. The bladder was examined in its entirety. No abnormalities were seen. Grasping forceps were used to grasp the distal end of the right ureteral stent, which was removed along with the cystoscope. The Gupta semirigid ureteroscope was advanced into the bladder, and the right ureteral orifice was cannulated. The ureteroscope was slowly advanced under direct vision, up to the calculus. However, it was evident that it was difficult to center the calculus in the visual field and that semirigid ureteroscopy would not be amenable to laser lithotripsy. Therefore, the semirigid ureteroscope was removed. The Gupta Boa mini flexible ureteroscope was advanced into the bladder, and the right ureteral orifice was cannulated. The ureteroscope was slowly advanced under direct vision, up to the calculus. The 272 micron Holmium laser probe was passed through the ureteroscope, and lithotripsy was performed. Great attention was paid to fragmenting the calculus and away that no calculus fragments refluxed proximally. Once the calculus was adequately fragmented, a 1.9-Burkinan 0 tip nitinol basket was used to remove all calculus fragments. The only residual fragments within the ureter were dustlike particles. There was no evidence of ureteral trauma. After removing the ureteroscope, the cystoscope was replaced into the bladder. The bladder was irrigated repeatedly until all calculus fragments were removed from the bladder. The bladder was emptied and the cystoscope removed. The patient tolerated the procedure well and was taken to the recovery room in stable condition. [facility] [place] [facility] Report: Procedure Acuity: Elective Stone Size and Location: 6 x 10 mm, right proximal ureter Ureteral Dilation: No Ureteral Access Sheath Used: No Stone Sent for Analysis: Yes All Stones/Fragments Were Removed with a Basket: Yes Complications: No Preoperative Antibiotics Given: Yes Stent Placed: No Discharge Medications: Bactrim DS
[2023-07-10] MEDS: HYDROmorphone 0.5 MG/0.5 ML SYRINGE IVP PRN (13:30)
[2023-07-10 13:51] VITALS: TEMP 97.4
[2023-07-10 15:03] VITALS: BP 118/77; PULSE 74; RESP 15
--- NOTE | 2023-07-10 15:05 | FL ---
Fluoroscopy History: CYSTO cysto in [place] with dr. valdez stone and stent removal .
== END 2023-07-10 14:40 | disposition home or self-care (01) ==
LOC: OR 09:23
PROVIDERS: ATTEND Urology
DX: N13.2 Hydronephrosis with renal and ureteral calculous obstruction (principal); Z87.442 Personal history of urinary calculi
CPT/HCPCS: 81025; 82365; 74018; 52353; J2250; J0330; J1100; J2710; J0690; J2405; J2001; J3010; J2704; J1170

== ENCOUNTER → 2023-09-24 | Outpatient (CLI) | payer MEDICARE, OTHER ==
--- NOTE | 2023-09-25 11:21 | US ---
EXAMINATION TYPE: US kidneys/renal and bladder DATE OF EXAM: 09/24/2023 COMPARISON: None CLINICAL INDICATION: Female, 43 years old with history of N13.2 HYDRONEPHROSIS WITH OBSTRUCTION; Ana ent has had surgery for kidney stone on right ureter. EXAM MEASUREMENTS: Right Kidney: 11.7 x 5.7 x 4.1 cm Left Kidney: 13.3 x 5.8 x 5.3 cm Right Kidney: Mild fullness of the renal collecting system. Left Kidney: Slight asymmetrically larger. No hydronephrosis. Bladder: Appears anechoic. Bilateral Jets seen: Yes Park Worker Supervisor notes: *Question- possible appearance of medullary sponge kidney? Echogenic medullary pyramids. IMPRESSION: 1. Mild fullness of the right renal collecting system may be transient or could reflect some residual or developing mild hydronephrosis. Follow-up can be considered. 2. Echogenic appearance to the medullary appearance is nonspecific. It may be seen in the setting of medullary sponge kidney.
== END | disposition home or self-care (01) ==
LOC: RADUSWWP 15:31
PROVIDERS: ATTEND Urology
DX: N13.2 Hydronephrosis with renal and ureteral calculous obstruction (principal)
CPT/HCPCS: 76770

== ENCOUNTER → 2023-10-01 | Outpatient (CLI) | payer MEDICARE, OTHER ==
--- NOTE | 2023-10-01 08:53 | CT ---
EXAMINATION TYPE: CT abdomen pelvis wo con DATE OF EXAM: 10/01/2023 COMPARISON: None HISTORY: 43-year-old female right kidney stone CT DLP: 381.4 mGycm. Automated exposure control for dose reduction was used. TECHNIQUE: Contiguous axial scanning of the abdomen and pelvis without IV contrast. Coronal and sagit tye reconstructions performed. FINDINGS: LUNG BASES: No significant abnormality is appreciated. LIVER/GB: No significant abnormality is appreciated. PANCREAS: No significant abnormality is seen. SPLEEN: No significant abnormality is seen. ADRENALS: No significant abnormality is seen. KIDNEYS: Significant punctate 2 mm calcification at the right pelvic inlet overlying the crossing luis ac vessels, and axial image 94. No other nephrolithiasis. No hydronephrosis. LYMPH NODES: No significant abnormality is seen. BOWEL: Small hiatal hernia. No dilated small bowel, free fluid, or free air. Appendix not clearly see n. No secondary findings of acute appendicitis in the right lower quadrant. Moderate stool burden. No pericolonic inflammatory change. PELVIS: Bladder is nondistended. Bulky retroverted uterus. An IUD is present and appears off center a nd obliqued. The sonographic limits. No abnormal fluid collection in the pelvis. Both ovaries are vis ualized. OTHER: No significant abnormality is seen. BONES: No significant abnormality is seen. IMPRESSION: 1. A punctate 2 mm calcification at the level of the mid right ureter. Equivocal for a tiny phleboli th versus mid ureteral stone. No other nephrolithiasis hydronephrosis. 2. Bulky, retroverted uterus. Possible underlying high-grade change. The patient's IUD is off-center and oblique possibly due to mass effect from underlying fibroids. If indicated, more detailed assess ment. The obtained pelvic MRI. This can also exclude the possibility of a sidearm perforation i nto the myometrium.
== END | disposition home or self-care (01) ==
LOC: RADCTMAIN 07:45
PROVIDERS: ATTEND Urology
DX: N28.89 Other specified disorders of kidney and ureter (principal); N85.4 Malposition of uterus
CPT/HCPCS: 74176

== ENCOUNTER 2023-12-31 18:28 | Observation (INO) | payer MEDICARE, OTHER ==
--- NOTE | 2023-12-31 18:52 | ED ---
Recheck HPI - General Chief Complaint: Dizziness Stated Complaint: Headache Time Seen by Provider: 12/31/23 18:38 Source: patient, EMS, RN notes reviewed, old records reviewed Mode of arrival: EMS Limitations: no limitations - History of Present Illness Initial Comments: This is a 43-year-old female to the ER for evaluation of severe headache severe neck pain severe dizziness nausea vomiting vertiginous symptoms. Patient presents for severe headache here in the ER after recently getting occipital nerve block Returns Today for: persistent/worsening pain related to initial visit Symptoms Since Prior Visit: worsening pain Associated Symptoms: nausea Treatments Prior to Arrival: other - Related Data Home Medications Medication Instructions Recorded Confirmed SUMAtriptan succinate [Imitrex] 100 mg PO BID PRN 12/20/22 07/10/23 Divalproex Sodium [Depakote] 250 mg PO BID 06/25/23 07/10/23 Escitalopram [Lexapro] 20 mg PO DAILY 06/25/23 07/10/23 Cephalexin [Keflex] 500 mg PO Q6HR 07/07/23 07/10/23 Previous Rx's Medication Instructions Recorded Fluconazole [Diflucan] 150 mg PO DAILY #2 tab 07/10/23 Allergies Allergy/AdvReac Type Severity Reaction Status Date / Time No Known Allergies Allergy Verified 07/10/23 10:40 Review of Systems ROS Statement: Those systems with pertinent positive or pertinent negative responses have been documented in the HPI. ROS Other: All systems not noted in ROS Statement are negative. Past Medical History Past Medical History: No Reported History Additional Past Medical History / Comment(s): migraines, kidney stones, History of Any Multi-Drug Resistant Organisms: None Reported Past Surgical History: Breast Surgery, Tonsillectomy Additional Past Surgical History / Comment(s): sinus surgery, ureteral stent placed, lumpectomy lft breast, Past Anesthesia/Blood Transfusion Reactions: No Reported Reaction Past Psychological History: Anxiety, Depression Smoking Status: Vaper - Past Family History Father Family Medical History: No Reported History General Exam Limitations: no limitations General appearance: alert, in no apparent distress Head exam: Present: atraumatic, normocephalic, normal inspection Eye exam: Present: normal appearance, PERRL, EOMI. Absent: scleral icterus, conjunctival injection, periorbital swelling ENT exam: Present: normal exam, mucous membranes moist Neck exam: Present: normal inspection. Absent: tenderness, meningismus, lymphadenopathy Respiratory exam: Present: normal lung sounds bilaterally. Absent: respiratory distress, wheezes, rales, rhonchi, stridor Cardiovascular Exam: Present: regular rate, normal rhythm, normal heart sounds. Absent: systolic murmur, diastolic murmur, rubs, gallop, clicks GI/Abdominal exam: Present: soft, normal bowel sounds. Absent: distended, ten derness, guarding, rebound, rigid Extremities exam: Present: normal inspection, full ROM, normal capillary refill. Absent: tenderness, pedal edema, joint swelling, calf tenderness Back exam: Present: normal inspection Neurological exam: Present: alert, oriented X3, CN II-XII intact Psychiatric exam: Present: normal affect, normal mood Skin exam: Present: warm, dry, intact, normal color. Absent: rash Course Vital Signs 12/31/23 12/31/23 18:37 20:22 Temperature 97.1 F L Pulse Rate 73 76 Respiratory 18 16 Rate Blood Pressure 129/69 100/50 O2 Sat by Pulse 100 98 Oximetry - Reevaluation(s) Reevaluation #1: 12/31/23 21:40 Medical records reviewed Reevaluation #2: 12/31/23 21:40 Patient symptoms unchanged 12/31/23 21:40 Patient symptoms may be mildly improved Reevaluation #3: 12/31/23 21:40 Patient informed of results and questions answered Reevaluation #4: Was pt. sent in by a medical professional or institution (, PA, FIRE WATCHMAN, urgent care, hospital, or usp...) When possible be specific @ -no Did you speak to anyone other than the patient for history (EMS, parent, family, police, friend...)? What history was obtained from this source @ -no Did you review nursing and triage notes (agree or disagree)? Why? @ -agree Are old charts reviewed (outside hosp., previous admission, EMS record, old EKG, old radiological studies, urgent care reports/EKG's, usp records)? Report findings @ -yes Differential Diagnosis (chest pain, altered mental status, abdominal pain women, abdominal pain men, vaginal bleeding, weakness, fever, dyspnea, syncope, headac he, dizziness, GI bleed, back pain, seizure, CVA, palpatations, mental health, musculoskeletal)? @ -prior EKG interpreted by me (3pts min.). @ -yes X-rays interpreted by me (1pt min.). @ -yes negative for acute disease CT interpreted by me (1pt min.). @ -no U/S interpreted by me (1pt. min.). @ -no What testing was considered but not performed or refused? (CT, X-rays, U/S, labs)? Why? @ -none What meds were considered but not given or refused? Why? @ -none Did you discuss the management of the patient with other professionals (professionals i.e. , PA, FIRE WATCHMAN, lab, RT, psych nurse, social work lecturer, wrapping machine operator, teacher, cra officer, shoe parts caser)? Give summary @ -no Was smoking cessation discussed for >3mins.? @ -no Were there social determinants of health that impacted care today? How? (Homelessness, low income, unemployed, alcoholism, drug addiction, transportation, low edu. Level, literacy, decrease access to med. care, senior living, rehab)? @ -none Was there de-escalation of care discussed even if they declined (Discuss DNR or withdrawal of care, Hospice)? DNR status @ -no What co-morbidities impacted this encounter? (DM, HTN, Smoking, COPD, CAD, Cancer, CVA, ARF, Chemo, Hep., AIDS, mental health diagnosis, sleep apnea, morbid obesity)? @ -none Was patient admitted / discharged? Hospital course, mention meds given and route, prescriptions, significant lab abnormalities, going to OR and other pertinent info. @ - Was critical care preformed (if so, how long)? @ -no Undiagnosed new problem with uncertain prognosis? @ -no Drug Therapy requiring intensive monitoring for toxicity (Heparin, Nitro, Insulin, Cardizem)? @ -no Were any procedures done? @ -no Diagnosis/symptom? @ - Acute, or Chronic, or Acute on Chronic? @ -Acute Uncomplicated (without systemic symptoms) or Complicated (systemic symptoms)? @ -Complicated Side effects of treatment? @ -no Exacerbation, Progression, or Severe Exacerbation? @ -exacerbation Poses a threat to life or bodily function? How? (Chest pain, [place], [place], pneumonia, PE, COPD, DKA, ARF, appy, cholecystitis, CVA, Diverticulitis, Homicidal, Suicidal, threat to staff... and all critical care pts) @ -yes Reevaluation #5: Differential Headache: Migraine, tension, cluster, carbon monoxide, central venous thrombosis, pension karma temporal arteritis, acute closure glaucoma, intercranial hemorrhage, mastoiditis, sinusitis, head injury, this is not meant to be an all-inclusive list. - Consultations Consultation #1: Poke with [facility] who agrees to admit this patient Consultation #2: I did speak with Dr. Johns who denies any significant complication from this procedure Medical Decision Making - Medical Decision Making 3 female with persistent and severe headache worsening headache here in the emergency room with nausea vomiting. Patient be admitted for symptom management - Lab Data Result diagrams: 12/31/23 19:02 12/31/23 19:02 Lab Results 12/31/23 12/31/23 12/31/23 Range/Units 19:02 19:02 19:02 WBC 4.9 (3.8-10.6) k/uL RBC 4.64 (3.80-5.40) m/uL Hgb 12.8 (11.4-16.0) gm/dL Hct 40.5 (34.0-46.0) % MCV 87.3 (80.0-100.0) fL MCH 27.7 (25.0-35.0) pg MCHC 31.7 (31.0-37.0) g/dL RDW 13.5 (11.5-15.5) % Plt Count 435 (150-450) k/uL MPV 7.2 Neutrophils % 89 % Lymphocytes % 8 % Monocytes % 1 % Eosinophils % 0 % Basophils % 0 % Neutrophils # 4.4 (1.3-7.7) k/uL Lymphocytes # 0.4 L (1.0-4.8) k/uL Monocytes # 0.1 (0-1.0) k/uL Eosinophils # 0.0 (0-0.7) k/uL Basophils # 0.0 (0-0.2) k/uL PT 10.5 (10.0-12.5) sec INR 0.9 (<1.2) APTT 22.4 (22.0-30.0) sec Sodium 141 (137-145) mmol/L Potassium 4.1 (3.5-5.1) mmol/L Chloride 110 H (98-107) mmol/L Carbon Dioxide 15 L (22-30) mmol/L Anion Gap 16 mmol/L BUN 9 (7-17) mg/dL Creatinine 0.68 (0.52-1.04) mg/dL Est GFR (CKD-EPI)AfAm >90 (>60 ml/min/1.73 sqM) Est GFR (CKD-EPI)NonAf >90 (>60 ml/min/1.73 sqM) Glucose 124 H (74-99) mg/dL Calcium 10.3 H (8.4-10.2) mg/dL Phosphorus 1.9 L (2.5-4.5) mg/dL Magnesium 1.6 (1.6-2.3) mg/dL Total Bilirubin 0.8 (0.2-1.3) mg/dL AST 25 (14-36) U/L ALT 24 (4-34) U/L Alkaline Phosphatase 71 (38-126) U/L Troponin I (0.000-0.034) ng/mL Total Protein 8.6 H (6.3-8.2) g/dL Albumin 5.3 H (3.5-5.0) g/dL 12/31/23 Range/Units 19:02 WBC (3.8-10.6) k/uL RBC (3.80-5.40) m/uL Hgb (11.4-16.0) gm/dL Hct (34.0-46.0) % MCV (80.0-100.0) fL MCH (25.0-35.0) pg MCHC (31.0-37.0) g/dL RDW (11.5-15.5) % Plt Count (150-450) k/uL MPV Neutrophils % % Lymphocytes % % Monocytes % % Eosinophils % % Basophils % % Neutrophils # (1.3-7.7) k/uL Lymphocytes # (1.0-4.8) k/uL Monocytes # (0-1.0) k/uL Eosinophils # (0-0.7) k/uL Basophils # (0-0.2) k/uL PT (10.0-12.5) sec INR (<1.2) APTT (22.0-30.0) sec Sodium (137-145) mmol/L Potassium (3.5-5.1) mmol/L Chloride (98-107) mmol/L Carbon Dioxide (22-30) mmol/L Anion Gap mmol/L BUN (7-17) mg/dL Creatinine (0.52-1.04) mg/dL Est GFR (CKD-EPI)AfAm (>60 ml/min/1.73 sqM) Est GFR (CKD-EPI)NonAf (>60 ml/min/1.73 sqM) Glucose (74-99) mg/dL Calcium (8.4-10.2) mg/dL Phosphorus (2.5-4.5) mg/dL Magnesium (1.6-2.3) mg/dL Total Bilirubin (0.2-1.3) mg/dL AST (14-36) U/L ALT (4-34) U/L Alkaline Phosphatase (38-126) U/L Troponin I <0.012 (0.000-0.034) ng/mL Total Protein (6.3-8.2) g/dL Albumin (3.5-5.0) g/dL Disposition Clinical Impression: Nausea & vomiting, Vertigo, Intractable nausea and vomiting, Headache Disposition: ADMITTED IP TO THIS [facility] Condition: Undetermined Is patient prescribed a controlled substance at d/c from ED?: No Referrals: Margy Hernandez MD [Primary Care Provider] - 1-2 days Time of Disposition: 21:30
[2023-12-31 19:15] LABS: Basophils % (A) 0 %; Eosinophils % (A) 0 %; HCT 40.5 % (34.0-46.0); HGB 12.8 gm/dL (11.4-16.0); Lymphocytes # (A) 0.4 k/uL (1.0-4.8); Lymphocytes % (A) 8 %; MCH 27.7 pg (25.0-35.0); MCHC 31.7 g/dL (31.0-37.0); MCV 87.3 fL (80.0-100.0); Mean Platelet Volume 7.2; Monocytes # (A) 0.1 k/uL (0-1.0); Monocytes % (A) 1 %; Neutrophils # (A) 4.4 k/uL (1.3-7.7); Neutrophils % (A) 89 %; Platelet Count 435 k/uL (150-450); RBC 4.64 m/uL (3.80-5.40); RDW 13.5 % (11.5-15.5); WBC 4.9 k/uL (3.8-10.6)
[2023-12-31] MEDS: KETOROLAC 15 MG/ML 1 ML VIAL IVP STA (19:15)
[2023-12-31] MEDS: diphenhydrAMINE 50 MG/ML 1 ML VIAL IVP STA (19:17)
[2023-12-31] MEDS: DEXAMETHASONE SOD PHOSPHATE 10 MG/ML 1 ML VIAL IVP STA (19:18)
[2023-12-31] MEDS: SODIUM CHLORIDE 0.9% 1,000 ML IV STA ×2 (19:19→21:44)
[2023-12-31] MEDS: droPERidol 5 MG/2 ML VIAL IVP ONE (19:20)
[2023-12-31] MEDS: HYDROmorphone 1 MG/ML 1 ML SYRINGE IVP STA (19:22)
[2023-12-31 19:24] LABS: ALT 24 U/L (4-34); AST 25 U/L (14-36); African American GFR (CKD) >90 (>60 ml/min/1.73 sqM); Albumin 5.3 g/dL (3.5-5.0); Alkaline Phosphatase 71 U/L (38-126); Anion Gap 16 mmol/L; Blood Urea Nitrogen 9 mg/dL (7-17); Calcium 10.3 mg/dL (8.4-10.2); Carbon Dioxide 15 mmol/L (22-30); Chloride 110 mmol/L (98-107); Glucose 124 mg/dL (74-99); Magnesium 1.6 mg/dL (1.6-2.3); Non-African American GFR(CKD) >90 (>60 ml/min/1.73 sqM); Phosphorus 1.9 mg/dL (2.5-4.5); Potassium 4.1 mmol/L (3.5-5.1); Sodium 141 mmol/L (137-145); Total Bilirubin 0.8 mg/dL (0.2-1.3); Total Protein 8.6 g/dL (6.3-8.2)
[2023-12-31 19:37] LABS: INR 0.9 (<1.2); Partial Thromboplastin Time 22.4 sec (22.0-30.0); Prothrombin Time 10.5 sec (10.0-12.5)
[2023-12-31] MEDS ORDERED: NALOXONE 0.4 MG/ML 1 ML VIAL IV PRN (21:36)
[2023-12-31] MEDS: SODIUM CHLORIDE 0.9% 500 ML 500 ML IV STA (21:44)
[2023-12-31] MEDS: MAGNESIUM SULFATE-D5W PMX 1 GM in DEXTROSE/WATER 1 100ML.BAG IVPB ONE (21:44)
[2023-12-31] MEDS: SODIUM CHLORIDE 0.9% 1,000 ML IV SCH (22:55)
[2024-01-01] MEDS: HYDROmorphone 1 MG/ML 1 ML SYRINGE IVP PRN (01:23)
[2024-01-01] MEDS: ONDANSETRON 4 MG/2 ML VIAL IVP PRN (03:51)
[2024-01-01] MEDS: KETOROLAC 15 MG/ML 1 ML VIAL IVP PRN (03:51)
[2024-01-01] MEDS: diphenhydrAMINE 25 MG CAP PO STA (06:07)
[2024-01-01] MEDS: SUMAtriptan succinate 50 MG TAB PO PRN (06:07)
[2024-01-01 06:38] LABS: Basophils % (A) 0 %; Eosinophils % (A) 0 %; HCT 33.2 % (34.0-46.0); HGB 10.7 gm/dL (11.4-16.0); Lymphocytes # (A) 0.6 k/uL (1.0-4.8); Lymphocytes % (A) 8 %; MCH 28.5 pg (25.0-35.0); MCHC 32.2 g/dL (31.0-37.0); MCV 88.6 fL (80.0-100.0); Mean Platelet Volume 8.1; Monocytes # (A) 0.4 k/uL (0-1.0); Monocytes % (A) 6 %; Neutrophils # (A) 6.3 k/uL (1.3-7.7); Neutrophils % (A) 86 %; Platelet Count 380 k/uL (150-450); RBC 3.75 m/uL (3.80-5.40); RDW 13.9 % (11.5-15.5); WBC 7.3 k/uL (3.8-10.6)
[2024-01-01 06:48] LABS: ALT 23 U/L (4-34); AST 22 U/L (14-36); African American GFR (CKD) >90 (>60 ml/min/1.73 sqM); Albumin 4.2 g/dL (3.5-5.0); Alkaline Phosphatase 53 U/L (38-126); Anion Gap 7 mmol/L; Blood Urea Nitrogen 11 mg/dL (7-17); Calcium 8.8 mg/dL (8.4-10.2); Carbon Dioxide 18 mmol/L (22-30); Chloride 113 mmol/L (98-107); Glucose 104 mg/dL (74-99); Magnesium 1.9 mg/dL (1.6-2.3); Non-African American GFR(CKD) >90 (>60 ml/min/1.73 sqM); Phosphorus 3.9 mg/dL (2.5-4.5); Potassium 3.9 mmol/L (3.5-5.1); Sodium 138 mmol/L (137-145); Total Bilirubin 0.6 mg/dL (0.2-1.3); Total Protein 6.9 g/dL (6.3-8.2)
[2024-01-01] MEDS ORDERED: Acetaminophen-Codeine 300-30mg TAB PO PRN (11:07)
[2024-01-01] MEDS: PANTOPRAZOLE 40 MG/10 ML VIAL IVP SCH (11:22)
--- NOTE | 2024-01-01 12:01 | HP ---
HISTORY AND PHYSICAL CHIEF COMPLAINT: Headache, dizziness and vomiting. HISTORY OF PRESENT ILLNESS: This is a 43-year-old woman with a past medical history of multiple medical problems including migraine, history of possible occipital neuralgia, being followed by Dr. Margy Hernandez in the outpatient. Yesterday, had cervical injections from Dr. Johns's office. Apparently, the needle was bent according to the family. The patient immediately had some nausea, and vomiting, and the patient went home and the symptoms persisted and the patient was taken to [facility] and admitted for further evaluation. The patient also complains of numbness of the left arm also. There is no history of any fever, rigors, or chills. PAST MEDICAL HISTORY: History of migraine, kidney stones. Rest of the history and rest of the chart is also reviewed. HOME MEDICATIONS: Trazodone. Dose and rest of medications reviewed. ALLERGIES: None. FAMILY HISTORY: No history of heart disease or strokes in the family. SOCIAL HISTORY: Previous history of smoking, vaping. REVIEW OF SYSTEMS: A 14-point review is negative except as mentioned earlier. PHYSICAL EXAMINATION: VITAL SIGNS: Pulse 82, blood pressure 118/59, respirations 18. HEENT: Conjunctivae normal. NECK: No JVD. Some minimal tenderness present. No obvious ecchymosis visible. CARDIOVASCULAR: S1, S2. RESPIRATIONS: Breath sounds diminished at the bases. No rhonchi. No crackles. ABDOMEN: Soft, nontender. LEGS: No edema. No swelling. NERVOUS SYSTEM: Moves all extremities. No focal deficits. LABORATORY DATA: CO2 is 15. 1.9. ASSESSMENT: 1. Intractable nausea, vomiting, possible acute gastritis. 2. History of recent cervical spine injection for occipital neuralgia. 3. Anemia. 4. History of migraine. 5. History of nephrolithiasis. 6. Anxiety, depression. 7. History of vaping. RECOMMENDATIONS AND DISCUSSION: This is a 43-year-old woman presented with multiple complex medical issues, we will monitor the patient closely. Continue the current medications, continue symptomatic treatment, otherwise neurology evaluation. CT scan of the brain as well as cervical spine. Symptomatic treatment. We will initiate soft diet and continue to monitor. Guarded prognosis. Further recommendations to follow. See orders for further details. MMODL / IJN: [id number] / [facility]
--- NOTE | 2024-01-01 14:37 | CT ---
EXAMINATION TYPE: CT brain dianaine wo con DATE OF EXAM: 01/01/2024 COMPARISON: None HISTORY: pain following procedure CT DLP: 1554.1 mGycm, Automated exposure control for dose reduction was used. CONTRAST: Patient injected with 0 mL of Isovue 300. CT of the brain is performed utilizing 3 mm thick sections through the posterior fossa and 3 mm thick sections through the remaining calvarium. Study is performed within 24 hours of arrival to the hospital. No abnormal hyperdensity is present to suggest an acute intracranial hemorrhage. No mass lesion is evident. No acute infarcts are evident. Ventricles and sulci are appropriate for the patient age. Paranasal sinuses and mastoid air cells within the [id number] are clear. IMPRESSIONS: 1. No acute intracranial process. Follow-up MRI can be performed as clinically indicated CT cervical spine. COMPARISON: None CT of the cervical spine is performed in the axial plane at 2 mm thick sections. Reconstructed image s in the coronal, and sagittal plane are reviewed on the computer. No acute fractures are evident. Vertebral body alignment is normal. Disc heights are preserved. Vertebral body heights are preserved. No spinal canal stenosis is evident. No neural foraminal stenosis is evident. Prevertebral space is normal. Posterior spinal lamellar line is intact. IMPRESSION: 1. No acute osseous abnormality cervical spine.
--- NOTE | 2024-01-01 14:41 | CT ---
EXAMINATION TYPE: CT angio head neck DATE OF EXAM: 01/01/2024 HISTORY: COMPARISON: None CT DLP: 316.40 mGycm. Automated Exposure Control for Dose Reduction was Utilized. TECHNIQUE: CTA scan of the neck is performed with IV Contrast, patient injected with Isovue 300, axi al images are obtained, coronal and sagittal reformatted images are reviewed. Three-D reconstructed i mages are created on an independent workstation and reviewed. Source images are reviewed. FINDINGS: Carotid/Vascular Structures: There is a 3 vessel arch. Common carotid arteries bifurcate into internal and external carotid arteries without significant jah w limiting stenosis. Vertebral arteries are codominant. Internal carotid arteries and vertebral arteries are patent to the skull base. Cervical of Shepherd: Vertebral basilar system appears normal. Posterior cerebral vasculature is unrema rkable. Internal carotid arteries bifurcate normally into A1 and M1 segments. A2 segments are normal. The anterior communicating artery is patent. The right posterior communicating artery is absent. The left posterior communicating artery is absent. IMPRESSION: 1. No flow-limiting stenosis bilateral carotid bifurcations. 2. Normal [employer] of [place] NASCET criteria was used in interpretation of this exam?
--- NOTE | 2024-01-01 15:03 | P.CNNES ---
History of Present Illness Consult date: 01/01/24 Requesting physician: Ayana Tuttle Reason for Consult: seizure, passed out immediately after occ nerve injection in office History of Present Illness: Patient is a 43-year-old right-handed female with longstanding history of chronic daily intractable migraines came to the hospital by ambulance yesterday at 6:28 PM for acute onset of nausea vomiting, vertigo following occipital nerve block. Patient states that she has history of migraines since she was 12 or 13 years of age. She has failed all medications. Patient for the first time underwent bilateral occipital nerve block, which was performed by Kathi Cueto NP yesterday at around 10:30 AM. Patient first underwent MRI of the brain in the morning at their office and then went for the occipital nerve block. Patient first underwent right occipital nerve block, which did hurt, but was usual pain. As soon as she attempted the left occipital nerve block, patient developed instantaneous spinning, followed by nausea vomiting. She could not st op vomiting. She then passed out and had a seizure-like activity. When she came to, she would feel dizzy, sick whenever she would move her head. She was having head pounding and then later noticed some swelling of left side of the head and neck. After observation, patient was sent home at around 11:30 AM. Once patient reached home, she went to sleep and slept for couple hours. When she woke up, she again started throwing up, started sweating profusely, spinning, throwing up, in and out of consciousness, also noticed numbness of the whole body and generalized weakness and also started having diarrhea. Due to these reasons, patient's called the ambulance and was brought to the [facility]. As per EMS flowsheet it was reported that they were called for patient with a headache. Patient was alert and orient x 4 with GCS of 15. Patient's mentioned that patient had gone into her neurologist today and received a nerve block shot in her neck for recurrent migraine headache. He states that patient has since had worsening symptoms with headache, nausea vomiting and has been in bed not able to move. Patient denied any chest pain difficulty breathing but she is extremely dizzy as well. EKG showed sinus rhythm. Zofran 4 mg was given and 2 doses of fentanyl. Patient also complaining of weakness over her whole body and numbness. Stroke assessment is negative for any deficits. Blood pressure was 118/77 pulse rate 111, saturation 98%, blood glucose 134 mg/dL. Respirations 16. Blood test shows normal CBC PT PTT, normal basic metabolic panel, calcium 10.3 which is improved to 8.8. Hepatic panel is normal. Troponin negative. Home medications include Imitrex, Lexapro 20 mg, [place], trazodone, norethindrone 5 mg at bedtime. At present patient states that she feels okay but she is on Dilaudid and a lot of pain medications. She still has 6/10 headache. Patient has history of migraines since she was age 12 or 13. The migraines has got worse as she has become older. She has been on disability since June 2023 because of intractable migraine. Patient claims that she has tried all preventative medication including Aimovig, Emgality, Depakote, propranolol, Topamax, Ubrelvy, Nurtec. Patient has no headache free day in a month. The hea dache is rates from 3-10 all the time. She did exert nausea vomiting, light and noise sensitivity with the migraines. She has been to [facility]. Patient states that Imitrex helps as well as [place] 10/325 mg twice daily which she takes every day. She also has severe facial pain and even had undergone sinus surgery without any improvement. Patient has smoked 3/4 pack/day for 20 years, but for the last 4 years she has been vaping every day. Denies any alcohol. She does use edible marijuana at bedtime. Patient states that her mother has history of optic migraines and her son also has bad migraines like hers. Review of Systems Constitutional: Reports chills, Denies fever Eyes: bilateral blurred vision (Yesterday only, today ok), denies diplopia, denies loss of vision Ears: deny: decreased hearing, ear discharge, tinnitus Ears, nose, mouth and throat: Reports headache, Reports vertigo Cardiovascular: Denies chest pain, Denies high blood pressure, Denies shortness of breath Respiratory: Denies cough, Denies excessive sputum Gastrointestinal: Reports diarrhea, Reports nausea, Reports vomiting, Denies abdominal pain Genitourinary: Denies dysuria, Denies hematuria, Denies mixed incontinence Musculoskeletal: Reports neck pain, Denies low back pain Integumentary: Denies pruritus, Denies rash Neurological: Reports as per HPI Psychiatric: Reports anxiety, Reports depression Hematologic/Lymphatic: Reports easy bruising, Denies easy bleeding Past Medical History Past Medical History: No Reported History Additional Past Medical History / Comment(s): migraines, kidney stones, History of Any Multi-Drug Resistant Organisms: None Reported Past Surgical History: Breast Surgery, Tonsillectomy Additional Past Surgical History / Comment(s): sinus surgery, ureteral stent placed, lumpectomy lft breast, Past Anesthesia/Blood Transfusion Reactions: No Reported Reaction Past Psychological History: Anxiety, Depression Smoking Status: Former smoker, Vaper Past Alcohol Use History: Rare Past Drug Use History: Marijuana - Past Family History Father Family Medical History: No Reported History Medications and Allergies Home Medications Medication Instructions Recorded Confirmed Type SUMAtriptan succinate [Imitrex] 100 - 200 mg PO BID PRN 12/20/22 01/01/24 History Escitalopram [Lexapro] 20 mg PO HS 06/25/23 01/01/24 History HYDROcodone/APAP 10-325MG [[place] 1 tab PO BID PRN 01/01/24 01/01/24 History 10-325] Norethindrone 5mg 5 mg PO HS 01/01/24 01/01/24 History traZODone HCL 150 mg PO HS PRN 01/01/24 01/01/24 History Allergies Allergy/AdvReac Type Severity Reaction Status Date / Time No Known Allergies Allergy Verified 01/01/24 08:23 Physical Examination - Vital Signs Vital Signs: Vital Signs Temp Pulse Pulse Resp BP BP BP 01/01/24 07:00 98.2 F 62 16 121/79 01/01/24 01:34 98.6 F 82 18 118/69 12/31/23 23:26 98.2 F 86 16 120/79 12/31/23 21:59 70 18 124/76 12/31/23 20:22 76 16 100/50 12/31/23 18:37 97.1 F L 73 18 129/69 Pulse Ox 01/01/24 07:00 98 01/01/24 01:34 97 12/31/23 23:26 100 12/31/23 21:59 95 12/31/23 20:22 98 12/31/23 18:37 100 Intake and Output 12/31/23 01/01/24 01/01/24 22:59 06:59 14:59 Other: # Voids 2 Weight 72.575 kg Patient is a middle aged female, very pleasant, in no acute distress. Patient is alert awake oriented to time place and person. Speech and language functions are normal. Patient can name and repeat very well. No aphasia or dysarthria. Attention, concentration and fund of knowledge is adequate. On cranial nerve examination, pupils are equal, round and reacting to light, visual becerril are full on confrontation, with no neglect on double simultaneous stimulation. No Stevo syndrome noted. Extraocular muscles are intact with no nystagmus. Face is symmetric, tongue protrudes to the midline. Palatal elevation and sensation normal, hearing and shoulder shrug normal, facial sensation normal. On muscle strength testing, there is no pronator drift and the strength is normal in arms and legs distally and proximally. Deep tendon reflexes are symmetric 2+3 all over and plantars downgoing. Sensory to touch is equal with no neglect on double simultaneous stimulation. Cerebellar function showed no ataxia for aiuzda-wz-ybwt testing. No dysdiadochokinesia. No ataxia for ifze-bq-jird testing on either side. Tone and bulk of muscles normal. Gait deferred.. On general examination, there is no carotid bruit or murmur, S1-S2 audible. Chest is clear on consultation. Abdomen is soft nontender. No organomegaly, bowel sounds present. Peripheral pulses are present. No peripheral edema. Results - Laboratory Findings CBC and BMP: 01/01/24 06:21 01/01/24 06:21 Abnormal Lab Findings: Abnormal Labs 12/31/23 12/31/23 01/01/24 19:02 19:02 06:21 RBC 3.75 L Hgb 10.7 L Hct 33.2 L Lymphocytes # 0.4 L 0.6 L Chloride 110 H Carbon Dioxide 15 L Glucose 124 H Calcium 10.3 H Phosphorus 1.9 L Total Protein 8.6 H Albumin 5.3 H 01/01/24 06:21 RBC Hgb Hct Lymphocytes # Chloride 113 H Carbon Dioxide 18 L Glucose 104 H Calcium Phosphorus Total Protein Albumin Assessment and Plan Assessment: * Acute onset of vertigo, nausea vomiting, syncopal spells, immediately following left occipital nerve block. Symptoms improved, but still has headaches. Current examination is nonfocal. NIH stroke scale 0. * Chronic daily migraines, medically intractable. * Marijuana use * Vapes * On disability due to chronic migraines Plan: * CT angiogram of head and neck to rule out vertebral artery dissection. * Patient also undergoing CT of head and neck. * Patient's vertigo has mostly resolved. * Patient had just completed MRI of the brain yesterday before occipital nerve block, therefore will hold off on repeating MRI, as examination is nonfocal. * Neurology will follow. Thank you for the consult.
[2024-01-01 15:15] LABS: Amphetamine Screen,Urine Not Detected (NotDetected); Barbiturate Screen,Urine Not Detected (NotDetected); Benzodiazepines Screen,Urine Not Detected (NotDetected); Cocaine Screen,Urine Not Detected (NotDetected); Methadone Screen, Urine Not Detected (NotDetected); Opiate Screen,Urine Detected (NotDetected); Oxycodone Screen, Urine Not Detected (NotDetected); Phencyclidine Screen,Urine Not Detected (NotDetected); Tricyclic Antidepressant,Urine Not Detected (NotDetected); Urn Cannabinoid Scrn Detected (NotDetected)
[2024-01-01] MEDS: ESCITALOPRAM 20 MG TAB PO SCH (20:37)
[2024-01-01] MEDS: NORETHINDRONE 5 MG PO SCH (20:38)
[2024-01-01] MEDS: traZODone HCL 100 MG TAB PO PRN (21:01)
[2024-01-01] MEDS: ALPRAZolam 0.25 MG TAB PO PRN (22:21)
[2024-01-01] MEDS: HYDROcodone/APAP 10-325MG 1 EACH TAB PO PRN (22:21)
[2024-01-02] MEDS: ONDANSETRON 4 MG/2 ML VIAL IVP PRN (02:08)
[2024-01-02 07:59] VITALS: BP 155/79; PULSE 79; RESP 16; TEMP 98
[2024-01-02 09:00] LABS: Basophils # (A) 0.01 X 10*3/uL (0.00-0.10); Basophils % (A) 0.2 %; Eosinophils # (A) 0.01 X 10*3/uL (0.04-0.35); Eosinophils % (A) 0.2 %; HCT 28.8 % (37.2-46.3); HGB 9.2 g/dL (12.0-15.0); Lymphocytes # (A) 2.42 X 10*3/uL (0.90-5.00); Lymphocytes % (A) 43.2 %; MCH 28.3 pg (27.0-32.0); MCHC 31.9 g/dL (32.0-37.0); MCV 88.6 FL (80.0-97.0); Mean Platelet Volume 9.9 FL (9.5-12.2); Monocytes # (A) 0.55 X 10*3/uL (0.20-1.00); Monocytes % (A) 9.8 %; NRBC Per 100 WBC 0 X 10*3/uL (0.00-0.01); Neutrophils % (A) 46.4 %; Platelet Count 295 X 10*3/uL (140-440); RBC 3.25 X 10*6/uL (4.10-5.20); RDW 14.2 % (11.5-14.5)
[2024-01-02 09:04] LABS: ALT 17 U/L (8-44); AST 14 U/L (13-35); Albumin 3.8 g/dL (3.8-4.9); Alkaline Phosphatase 42 U/L (41-126); BUN/Creat Ratio 12.38 Ratio (12.00-20.00); Blood Urea Nitrogen 9.9 mg/dL (9.0-27.0); Calcium 8.4 mg/dL (8.7-10.3); Carbon Dioxide 20.3 mmol/L (21.6-31.8); Chloride 113 mmol/L (96-109); Globulin 1.9 g/dL (1.6-3.3); Glucose 97 mg/dL (70-110); Potassium 4.4 mmol/L (3.5-5.5); Sodium 140 mmol/L (135-145); Total Bilirubin 0.2 mg/dL (0.3-1.2); Total Protein 5.7 g/dL (6.2-8.2)
[2024-01-02] MEDS: ASPIRIN 81 MG PO SCH (13:32)
--- NOTE | 2024-01-03 12:54 | P.PN ---
Subjective Progress Note Date: 01/02/24 Patient was seen for a follow-up. Patient's was also present today. Patient's symptoms have mostly resolved. She has just baseline headache, and nausea, but she has chronically present related to her chronic daily migraines. She is able to walk fairly normal. Offers no focal symptoms. Objective - Vital Signs Vital signs: Vital Signs Temp 98.0 F 01/02/24 07:00 Pulse 79 01/02/24 07:00 Resp 16 01/02/24 07:00 BP 155/79 01/02/24 07:00 Pulse Ox 100 01/02/24 07:00 FiO2 Intake & Output 01/01/24 01/02/24 01/02/24 18:59 06:59 18:59 Intake Total 675 236 Balance 675 236 Intake: Intake, IV Titration 675 Amount Sodium Chloride 0.9% 1, 675 000 ml @ 75 mls/hr IV . [id number] CECIL Rx#:[id number] Oral 236 Other: # Voids 2 - Exam On examination patient's mental status, speech and language functions are normal. No aphasia or dysarthria. Comprehension intact. Cranial nerve examination are completely normal. Pupils are equal, round and reactive to light. Visual becerril are full on confrontation with no neglect. Extraocular muscles are intact with no nystagmus. No Stevo's. Face is symmetric, tongue protrudes to the midline. Palatal elevation and sensation normal. On muscle strength testing, there is no pronator drift and the strength is normal in arms and legs. Sensory to touch is equal with no neglect. Cerebellar functions revealed no ataxia for iemdqy-wi-kvrw testing or heel-to-s hin testing on either side. Patient's gait appears normal. - Labs CBC & Chem 7: 01/02/24 05:35 01/02/24 05:35 Labs: Abnormal Lab Results - Last 24 Hours (Table) 01/01/24 01/02/24 01/02/24 Range/Units 13:00 05:35 05:35 RBC 3.25 L (4.10-5.20) X 10*6/uL Hgb 9.2 L (12.0-15.0) g/dL Hct 28.8 L (37.2-46.3) % MCHC 31.9 L (32.0-37.0) g/dL Eosinophils # 0.01 L (0.04-0.35) X 10*3/uL Chloride 113 H (96-109) mmol/L Carbon Dioxide 20.3 L (21.6-31.8) mmol/L Calcium 8.4 L (8.7-10.3) mg/dL Total Bilirubin 0.2 L (0.3-1.2) mg/dL Total Protein 5.7 L (6.2-8.2) g/dL Urine Opiates Screen Detected H (NotDetected) U Marijuana (THC) Screen Detected H (NotDetected) Assessment and Plan Assessment: * Acute onset of vertigo, nausea vomiting, syncopal spells, immediately following left occipital nerve block. Symptoms improved, but still has headaches. Current examination is nonfocal. NIH stroke scale 0. * Chronic daily migraines, medically intractable. * Marijuana use * Vapes * On disability due to chronic migraines Plan: * CT angiogram of head and neck revealed no flow-limiting stenosis, bilateral carotid bifurcation. Normal [place] of [place]. No dissection. * CT of head revealed no acute intracranial process. CT scan of the neck showed no acute osseous abnormality of the cervical spine. * Patient's vertigo has mostly resolved. * Patient had just completed MRI of the brain before her occipital nerve block, therefore will hold off on repeating MRI, as examination is nonfocal. * Patient recommended to follow-up with her neurologist within 1 to 2 days. If they feel, may perform another MRI of the brain. Will defer to primary neurologist. Patient's current examination is completely nonfocal. * Recommend patient to be placed on aspirin 81 mg daily for 6 weeks and then stop. * Neurologically clear for discharge.
--- NOTE | 2024-01-05 07:09 | P.DS ---
Providers Date of admission: 12/31/23 21:38 Expected date of discharge: 01/02/24 Attending physician: Zbigniew Low Consults: 01/01/24 11:26 Consult Physician Urgent Consulting Provider: Cole Dominguez Consult Reason/Comments: seizure, passed out immediately after occ nerve injection in office Do you want consulting provider notified?: Yes Primary care physician: Margy Hernandez Hospital Course: Final diagnosis Intractable nausea, vomiting, possible acute gastritis History of recent cervical spine injection for occipital neuralgia Anemia History of migraine History of nephrolithiasis Anxiety/depression History of vaping GI prophylaxis DVT prophylaxis Full code Discharge disposition Patient is being discharged in a stable condition with guarded prognosis to home. Patient will follow-up with Dr. Hernandez in the outpatient setting upon discharge. Patient is to continue with close outpatient follow-up with neurology for as scheduled. Total time taken is greater than 35 minutes. Hospital course This is a 43-year-old female who was recently admitted with intractable nausea vomiting with continued headache being closely monitored. Patient was recently at her primary neurologist office receiving occipital neuralgia spine injections and experienced an unresponsive episode with significant nausea vomiting and increased headache. Patient was sent home continued to have worsening symptoms came to the ER for further evaluation. Patient underwent neurological evaluation including CT which was negative and symptoms are resolving although concerning and recommend outpatient follow-up with neurologist. Patient has been cleared by neurology. Please refer to neurology notes for further HPI. Currently no reports of chest pain, shortness of breath, or palpitations. Patient is afebrile. No reports of nausea or vomiting and patient is tolerating diet. Patient will be discharged home today. Guarded prognosis Physical exam: Gen: This is a 43-year-old female who is awake, alert and oriented x 3, well- developed, well-nourished HEENT: Head is atraumatic, normocephalic. Pupils equal, round. Sclerae is anicteric. NECK: Supple. No JVD. No lymphadenopathy. No thyromegaly. LUNGS: Clear to auscultation. No wheezes or rhonchi. No intercostal retractions. HEART: Regular rate and rhythm. No murmur. ABDOMEN: Soft. Bowel sounds are present. No masses. No tenderness. EXTREMITIES: No pedal edema. No calf tenderness. NEUROLOGICAL: Patient is awake, alert and oriented x3. Cranial nerves 2 through 12 are grossly intact. Please refer to medication reconciliation sheet for a list of medications. The impression and plan of care has been dictated by Ayana Tuttle, Nurse Practitioner as directed. Dr. Devante MD I have performed a history and examination and MDM of this patient, discussed the same with the dictator, and agree with the dictator's assessment and plan as written ,documented as a scribe. Based on total visit time, I have performed more than 50% of the visit. Patient Condition at Discharge: Stable Plan - Discharge Summary New Discharge Prescriptions: New Aspirin 81 mg PO DAILY #30 tab Ondansetron Odt [Zofran Odt] 4 mg PO Q8HR PRN #20 tab PRN Reason: Nausea Continue HYDROcodone/APAP 10-325MG [[place] 10-325] 1 tab PO BID PRN PRN Reason: Pain Norethindrone 5mg 5 mg PO HS traZODone HCL 150 mg PO HS PRN PRN Reason: Insomnia SUMAtriptan succinate [Imitrex] 100 - 200 mg PO BID PRN PRN Reason: Migraine Headache Escitalopram [Lexapro] 20 mg PO HS Discharge Medication List SUMAtriptan succinate [Imitrex] 100 - 200 mg PO BID PRN 12/20/22 [History] Escitalopram [Lexapro] 20 mg PO HS 06/25/23 [History] HYDROcodone/APAP 10-325MG [[place] 10-325] 1 tab PO BID PRN 01/01/24 [History] Norethindrone 5mg 5 mg PO HS 01/01/24 [History] traZODone HCL 150 mg PO HS PRN 01/01/24 [History] Aspirin 81 mg PO DAILY #30 tab 01/02/24 [Rx] Ondansetron Odt [Zofran Odt] 4 mg PO Q8HR PRN #20 tab 01/02/24 [Rx] Follow up Appointment(s)/Referral(s): Margy Hernandez MD [Primary Care Provider] - 1-2 days Jessica Johns MD [Medical Doctor] - 1 Week Patient Instructions/Handouts: Acute Nausea and Vomiting (DC) Activity/Diet/Wound Care/Special Instructions: Activity limited until follow-up Follow-up with neurologist next week Follow-up primary care provider on discharge Continue with aspirin for 6 weeks per neurology Continue taking medications as prescribed Discharge Disposition: HOME SELF-CARE
== END 2024-01-02 13:43 | disposition home or self-care (01) ==
LOC: EC 18:28 → 6NMEDSUR 21:38
PROVIDERS: ADMIT Hospitalist; ATTEND Hospitalist
DX: R11.2 Nausea with vomiting, unspecified (principal); M54.81 Occipital neuralgia; D64.9 Anemia, unspecified; G43.909 Migraine, unspecified, not intractable, without status migrainosus; F41.8 Other specified anxiety disorders; Z87.891 Personal history of nicotine dependence; Z87.442 Personal history of urinary calculi; Z79.899 Other long term (current) drug therapy
CPT/HCPCS: 96376 ×2; 96365; 96366 ×3; 96367 ×2; 96375 ×2; 99285; 36415; 80053 ×3; 85652; 83735 ×2; 84100 ×2; 84484; 85025 ×3; 85610; 85730; 86140; 80306; 72125; 70496; 70450; 70498; G0378 ×3; J1200; J1100; J2405 ×2; J1170 ×3; J3475; J1885 ×2; C9113 ×2; Q9967; J1790

== ENCOUNTER → 2024-02-13 | Outpatient (CLI) | payer MEDICARE, OTHER ==
[2024-02-13 18:23] LABS: HGB 12.1 g/dL (12.0-15.0); MCH 27.9 pg (27.0-32.0); MCHC 31.8 g/dL (32.0-37.0); MCV 87.8 FL (80.0-97.0); RBC 4.33 X 10*6/uL (4.10-5.20); RDW 14.5 % (11.5-14.5); WBC 4.88 X 10*3/uL (4.50-10.00)
[2024-02-13 18:24] LABS: Basophils # (A) 0.03 X 10*3/uL (0.00-0.10); Basophils % (A) 0.6 %; Eosinophils # (A) 0.08 X 10*3/uL (0.04-0.35); Eosinophils % (A) 1.6 %; Lymphocytes # (A) 2.15 X 10*3/uL (0.90-5.00); Lymphocytes % (A) 44.1 %; Mean Platelet Volume 9.7 FL (9.5-12.2); Monocytes # (A) 0.51 X 10*3/uL (0.20-1.00); Monocytes % (A) 10.5 %; NRBC Per 100 WBC 0 X 10*3/uL (0.00-0.01); Platelet Count 417 X 10*3/uL (140-440)
[2024-02-13 18:44] LABS: Blood Urea Nitrogen 10.7 mg/dL (9.0-27.0); Carbon Dioxide 22.8 mmol/L (21.6-31.8); Chloride 107 mmol/L (96-109); Glucose 83 mg/dL (70-110); Potassium 4.1 mmol/L (3.5-5.5); Sodium 143 mmol/L (135-145)
== END | disposition home or self-care (01) ==
LOC: LABPAT 12:55
PROVIDERS: ATTEND Obstetrics & Gynecology
DX: Z01.812 Encounter for preprocedural laboratory examination (principal); N93.9 Abnormal uterine and vaginal bleeding, unspecified
CPT/HCPCS: 80051; 82565; 82947; 84520; 85025; 86850; 86900; 86901; 87086

== ENCOUNTER 2024-02-23 08:32 | Day surgery (SDC) | payer MEDICARE, OTHER ==
[2024-02-16 15:58] VITALS: BMI 23.3
--- NOTE | 2024-02-21 09:39 | P.HPOB ---
History of Present Illness H&P Date: 02/21/24 Chief Complaint: dysfunctional uterine bleeding 44-year-old presents for total laparoscopic hysterectomy bilateral salpingectomy using da Tarun and diagnostic cystoscopy. Possible total abdominal hysterectomy bilateral salpingo-oophorectomy. She has a 10-12 week size uterus and frequent irregular heavy vaginal bleeding causing mild anemia. Review of Systems All systems: negative Constitutional: Denies chills, Denies fever Eyes: denies blurred vision, denies pain Ears, nose, mouth and throat: Denies headache, Denies sore throat Cardiovascular: Denies chest pain, Denies shortness of breath Respiratory: Denies cough Gastrointestinal: Denies abdominal pain, Denies diarrhea, Denies nausea, Denies vomiting Genitourinary: Denies dysuria, Denies hematuria Musculoskeletal: Denies myalgias Integumentary: Denies pruritus, Denies rash Neurological: Denies numbness, Denies weakness Psychiatric: Denies anxiety, Denies depression Endocrine: Denies fatigue, Denies weight change Past Medical History Past Medical History: No Reported History, Skin Disorder Additional Past Medical History / Comment(s): Chronic daily migraines. Hx kidney stones. Anemia. Recently hospitalized for 3 days (12/2023) after having seizure directly after getting an occipital nerve block, no seizures since. Dermatitis on scalp. History of Any Multi-Drug Resistant Organisms: None Reported Past Surgical History: Breast Surgery, Tonsillectomy Additional Past Surgical History / Comment(s): Sinus surgery, ureteral stent placed, left breast lumpectomy. Past Anesthesia/Blood Transfusion Reactions: No Reported Reaction, Motion Sickness Smoking Status: Former smoker, Vaper - Past Family History Father Family Medical History: No Reported History Medications and Allergies Home Medications Medication Instructions Recorded Confirmed Type SUMAtriptan succinate [Imitrex] 100 - 200 mg PO BID PRN 12/20/22 02/16/24 History Escitalopram [Lexapro] 20 mg PO HS 06/25/23 02/16/24 History HYDROcodone/APAP 10-325MG [[place] 1 tab PO BID 01/01/24 02/16/24 History 10-325] Aygestine 5 mg PO HS 02/16/24 02/16/24 History Ergocalciferol [Vitamin D2 (1250 1,250 mcg PO WEEKLY 02/16/24 02/16/24 History Mcg = [id number] Iu)] Allergies Allergy/AdvReac Type Severity Reaction Status Date / Time No Known Allergies Allergy Verified 02/16/24 15:37 Exam Osteopathic Statement: *. No significant issues noted on an osteopathic structural exam other than those noted in the History and Physical/Consult. Heart: Regular rate and rhythm Lungs: Clear to auscultation bilaterally Abdomen: Soft, nontender Extremities: Negative Homans sign Bimanual exam reveals a 10-12 week size uterus Assessment and Plan (1) Dysfunctional uterine bleeding Status: Acute Code(s): N93.8 - OTHER SPECIFIED ABNORMAL UTERINE AND VAGINAL BLEEDING SNOMED Code(s): 67222479541267 (2) Iron deficiency anemia due to chronic blood loss Status: Acute Code(s): D50.0 - IRON DEFICIENCY ANEMIA SECONDARY TO BLOOD LOSS (CHRONIC) SNOMED Code(s): 850867389 (3) Enlarged uterus Status: Acute Code(s): N85.2 - HYPERTROPHY OF UTERUS SNOMED Code(s): 542588001 Plan: 1. Total laparoscopic hysterectomy with bilateral salpingectomy using da Tarun and diagnostic cystoscopy, possible LEVON/BSO
[~2024-02-23 08:32] MED LIST changes: -LACTATED RINGERS 1,000 ML IV SCH; +LIDOCAINE 1% (10MG/ML) FOR IV START INTRADERMA PRN
[2024-02-23] MEDS: LACTATED RINGERS 1,000 ML IV SCH (09:21)
[2024-02-23] MEDS: SCOPOLAMINE 1 MG/72 HR PATCH TRANSDERM ONE (09:22)
[2024-02-23] MEDS: ONDANSETRON 4 MG/2 ML VIAL IVP ONE (09:22)
[2024-02-23] MEDS: MIDAZOLAM 2 MG/2 ML VIAL IV ONE (09:22)
[2024-02-23] MEDS: DEXAMETHASONE SOD PHOSPHATE 4 MG/ML 1 ML VIAL IV ONE (09:24)
[2024-02-23] MEDS: IV FLUID CONTINUATION 1,000 ML IV ONE (09:26)
[2024-02-23] MEDS ORDERED: LIDOCAINE 1% INJ 10MG/ML (20 ML MDV) ONE (09:53)
[2024-02-23] MEDS ORDERED: NEOSTIGMINE 1 MG/ML 10 ML VIAL ONE (09:53)
[2024-02-23] MEDS ORDERED: ROCURONIUM 10 MG/ML (5 ML VIAL) IV ONE (09:53)
[2024-02-23] MEDS ORDERED: GLYCOPYRROLATE 0.2 MG/ML 2 ML VIAL ONE (09:53)
[2024-02-23] MEDS ORDERED: KETOROLAC 15 MG/ML 1 ML VIAL ONE (09:53)
[2024-02-23] MEDS ORDERED: PROPOFOL 10 MG/ML 20 ML VIAL IV ONE (09:53)
[2024-02-23] MEDS ORDERED: MIDAZOLAM 2 MG/2 ML VIAL ONE (09:53)
[2024-02-23] MEDS ORDERED: fentaNYL (PF) 50 MCG/ML 2 ML AMP ONE (09:53)
[2024-02-23] MEDS: BUPIVACAINE (PF) 0.25% 30 ML VIAL SQ ONE (09:58)
[2024-02-23] MEDS: LACTATED RINGERS 1,000 ML IV ONE (11:16)
--- NOTE | 2024-02-23 11:38 | P.OP ---
Date of Procedure: 02/23/24 Preoperative Diagnosis: 1. menorrhagia 2. enlarged fibroid uterus 3. chronic iron deficiency anemia from chronic blood loss Postoperative Diagnosis: same Procedure(s) Performed: robotic-assisted laparoscopic hysterectomy bilateral salpingectomy using da Vi nci diagnostic cystoscopy Anesthesia: GISELL Surgeon: Sangeetha Jaeger Tug Boat Captain #1: Nat Cortez Estimated Blood Loss (ml): 30 IV fluids (ml): 900 Urine output (ml): 75 Pathology: other (uterus, cervix, bilateral fallopian tubes) Condition: stable Disposition: PACU Operative Findings: urge fibroid uterus that sounded to 11 cm. Normal tubes and ovaries. Description of Procedure: Patient taken the operating room where general anesthesia was obtained without difficulty. She is prepped and draped in normal sterile fashion dorsal lithotomy position, legs placed in the Jeovanny stirrups. Weighted speculum placed in the vagina and the anterior lip the cervix was grasped with single-tooth tenaculum. The uterus sounded to 11 cm and the cervix diameter was 4cm. The appropriate manipulator tip and ring were placed on the Stacy manipulator. The Stacy manipulator was then placed in the uterus. Vega catheter was also placed. Attention was then turned to the abdomen and gloves were changed. A 5 mm supraumbilical incision was made the scalpel and a 5 mm optical trocar was placed under direct visualization. 10 cm to the right of this and 2 cm down a 5 mm incision was made and 8 mm da Tarun port was placed under direct visualization. Same measurements on the opposite side of the patient's abdomen, the 5 mm incision was made and 8 mm da Tarun port was placed under direct visualization. In the left upper quadrant a 10 mm incision was made and a 10 mm optical trocar was placed under direct visualization. The 5 mm optical trocar was then replaced with the 8 mm da Tarun camera port. The robot was docked on patient's right side. The camera was introduced and then the monopolar curved scissor and vessel sealer placed under direct visualization. I broke scrub and went to the physician console. The left mesosalpinx was cut and sealed using the vessel sealer. The left fallopian tube was then removed through the legal document assistant port. The left round ligament was sealed and cut using the vessel sealer. The posterior leaf of the broad ligament was taken down using the monopolar curved scissors. Anterior leaf of the broad ligament was then taken down using the monopolar curved scissors. The uterine artery wassealed and cut using the vessel sealer. The bladder flap was then started using the monopolar curved scissors. Attention was then turned to the right side of the patient's anatomy and the right mesosalpinx sealed and cut using the vessel sealer. The right round ligament was csealed and cut using the vessel sealer. Posterior leaf of the broad ligament was taken down using the monopolar curved scissors and the anterior leaf was taken down using the monopolar curved scissors. The uterine artery was sealed and cut using the vessel sealer. The bladder flap was then finished on this side. Anterior colpotomy was made using the monopolar curved scissors. The rest of the uterus was from the vaginal cuff by following the ring around with the monopolar curved scissors through the uterosacral ligaments back to the anterior portion. Once the uterus and cervix were amputated they were pulled through the vaginal cuff. Hemostasis was assured. The instruments were changed for the Cardier forcep and the mariah suture cut. The vaginal cuff was then closed using 2-O stratafix barbed suture in a running fashion. Hemostasis was again assured and the pelvis was irrigated. All instruments were removed from the abdomen and the robot was undocked. I scrubbed back in to perform a cystoscopy. There were jets from both ureteral orifices. The abdominal incisions were closed with 4-0 Vicryl in a subcuticular fashion. Patient tolerated the procedure well, sponge and instr ument counts correct 2 and she was taken to recovery room in stable condition condition
[2024-02-23] MEDS: droPERidol 5 MG/2 ML VIAL IVP ONE (11:46)
[2024-02-23] MEDS: HYDROmorphone 0.5 MG/0.5 ML SYRINGE IVP PRN (11:47)
[2024-02-23 12:24] VITALS: RESP 16
[2024-02-23] MEDS ORDERED: IBUPROFEN 600 MG TAB PO PRN (13:03)
[2024-02-23] MEDS ORDERED: SIMETHICONE 80 MG CHEWABLE PO PRN (13:03)
[2024-02-23] MEDS ORDERED: SUMAtriptan succinate 50 MG TAB PO PRN (13:03)
[2024-02-23] MEDS ORDERED: ONDANSETRON 4 MG/2 ML VIAL IVP PRN (13:03)
[2024-02-23] MEDS: KETOROLAC 15 MG/ML 1 ML VIAL IVP PRN (13:28)
[2024-02-23 13:37] VITALS: TEMP 98.3
[2024-02-23] MEDS: HYDROcodone/APAP 10-325MG 1 EACH TAB PO PRN (14:47)
[2024-02-23] MEDS: SENNOSIDES-DOCUSATE SODIUM 1 EACH TAB PO SCH (20:58)
[2024-02-23] MEDS: ESCITALOPRAM 20 MG TAB PO SCH (20:58)
[2024-02-24] MEDS: diphenhydrAMINE 50 MG/ML 1 ML VIAL IVP PRN (01:25)
[2024-02-24 05:46] VITALS: BP 122/74; PULSE 68
[2024-02-24 07:12] LABS: Basophils % (A) 0 %; Eosinophils % (A) 0 %; HCT 30.5 % (34.0-46.0); Hypochromasia Slight; Lymphocytes # (A) 1.5 k/uL (1.0-4.8); Lymphocytes % (A) 20 %; MCH 28.4 pg (25.0-35.0); MCHC 32.7 g/dL (31.0-37.0); Mean Platelet Volume 7.9; Monocytes # (A) 0.6 k/uL (0-1.0); Monocytes % (A) 9 %; Neutrophils % (A) 68 %; Platelet Count 270 k/uL (150-450); RBC 3.51 m/uL (3.80-5.40); RDW 14.3 % (11.5-15.5); WBC 7.3 k/uL (3.8-10.6)
--- NOTE | 2024-02-24 08:06 | P.DS ---
Providers Expected date of discharge: 02/24/24 Attending physician: Sangeetha Jaeger Primary care physician: Margy Hernandez - Discharge Diagnosis(es) (1) Dysfunctional uterine bleeding Current Visit: No Status: Resolved (2) Iron deficiency anemia due to chronic blood loss Current Visit: No Status: Chronic (3) Enlarged uterus Current Visit: No Status: Resolved (4) Status post robot-assisted surgical procedure Current Visit: Yes Status: Acute Hospital Course: Patient presented to and for a robotic laparoscopic-assisted vaginal hysterectomy with bilateral salpingectomy and diagnoses cystoscopy using da Traun. She underwent this procedure without complication. Postoperative course has been uneventful. She denies nausea, vomiting, chest pain, shortness of breath or calf pain. She is tolerating regular diet and passing flatus. Her pain is well-controlled and would be discharged home post operative day #1 in stable condition on [place] and Motrin to follow-up with me in 3 weeks. Plan - Discharge Summary Discharge Rx Participant: Yes New Discharge Prescriptions: No Action HYDROcodone/APAP 10-325MG [[place] 10-325] 1 tab PO BID Aygestine 5 mg PO HS Ergocalciferol [Vitamin D2 (1250 Mcg = 68960 Iu)] 1,250 mcg PO WEEKLY SUMAtriptan succinate [Imitrex] 100 - 200 mg PO BID PRN PRN Reason: Migraine Headache Escitalopram [Lexapro] 20 mg PO HS Discharge Medication List SUMAtriptan succinate [Imitrex] 100 - 200 mg PO BID PRN 12/20/22 [History] Escitalopram [Lexapro] 20 mg PO HS 06/25/23 [History] HYDROcodone/APAP 10-325MG [[place] 10-325] 1 tab PO BID 01/01/24 [History] Aygestine 5 mg PO HS 02/16/24 [History] Ergocalciferol [Vitamin D2 (1250 Mcg = 57271 Iu)] 1,250 mcg PO WEEKLY 02/16/24 [History] Follow up Appointment(s)/Referral(s): Sangeetha Jaeger DO [Doctor of Osteopathic Medicine] - 3 Weeks Patient Instructions/Handouts: *Surgery [facility] - (Anesthesia) Discharge Instructions Outpatient Surgery, *[facility] - Scopalamine Patch Instructions Discharge Disposition: HOME SELF-CARE
[2024-02-24] MEDS ORDERED: ACETAMINOPHEN TAB 325 MG TAB PO PRN (11:33)
== END 2024-02-24 09:44 | disposition home or self-care (01) ==
LOC: OR 08:32 → 4FBP 11:48 → OR 02-24 09:44
PROVIDERS: ATTEND Obstetrics & Gynecology
DX: D25.1 Intramural leiomyoma of uterus (principal); N72 Inflammatory disease of cervix uteri; D50.0 Iron deficiency anemia secondary to blood loss (chronic); Z87.442 Personal history of urinary calculi; Z87.891 Personal history of nicotine dependence; Z90.89 Acquired absence of other organs
CPT/HCPCS: 58571; 81025; 85025; 88307; J2250; J1200; J1100; J2710; J0690; J2405; J2001; J3010; J1885; J2704; J1170; J1790; J0665; J1596

== ENCOUNTER → 2024-06-30 | Outpatient (CLI) | payer MEDICARE ==
--- NOTE | 2024-06-30 09:58 | MM ---
Reason for Exam: Clinical finding. Last mammogram was performed 2 year(s) and 9 month(s) ago. Patient History: Menarche at age 14. First Full-Term at age 25. Hysterectomy at age 44. Patient used Hormonal Contraceptives for 25 years. 2001, Excisional Biopsy on the Left side. Risk Values: Yoly 5 year model risk: 0.9%. NCI Lifetime model risk: 10.8%. Prior Study Comparison: 12/03/2010 Right Diagnostic Ultrasound, [facility]. 12/12/2016 Right Diagnostic Mammogram, [facility]. 09/11/2021 Bilateral Screening Mammogram, [facility]. Tissue Density: The breasts are extremely dense, which lowers the sensitivity of mammography. Findings: Analyzed By CAD. 2.3 cm chronic nodularity posterior 12:00 left breast. Palpable marker along the upper-outer quadrant of the left breast with additional underlying nodularity measuring up to 2.3 cm. There is a very some fluctuating nodularity compared to the patient's 2021 exam. Asymmetric density just above the retroareolar plane right MLO view of the middle to posterior depth disperses on the views suggesting superimposition shadow. A few typically benign punctate calcifications on the left are loosely grouped. Overall Assessment: Incomplete: need additional imaging evaluation, BI-RAD 0 Management: Diagnostic Breast Ultrasound of the left breast. [facility], , 06/30/2024 9:55 AM. Electronically signed and approved by: Harsha Roberson M.D. Radiologist
--- NOTE | 2024-06-30 11:10 | USB ---
Reason for Exam: Additional evaluation requested from abnormal screening. Patient History: Menarche at age 14. First Full-Term at age 25. Hysterectomy at age 44. Patient used Hormonal Contraceptives for 25 years. 2001, Excisional Biopsy on the Left side. Risk Values: Yoly 5 year model risk: 0.9%. NCI Lifetime model risk: 10.8%. Technique: Method: Whole Breast Automated. Prior Study Comparison: 12/12/2016 Right Diagnostic Mammogram, [facility]. 09/11/2021 Bilateral Screening Mammogram, [facility]. Findings: The whole breast of the left breast, the axilla of the left breast and the retroareolar of the left breast were scanned. A complete US of all four quadrants of the breast, axilla, and retro-areolar region were reviewed. Patient's palpable site corresponding to the upper outer quadrant area At the 12:00 position, there is a complex cyst measuring 2.0 x 1.7 x 1.4 cm mural based nodularity measures 1.5 cm but shows no internal vascularity. Contracted breathing is a possibility. Tissue sampling/aspiration is recommended. At the 1:00 position, 7 cm from the nipple, there is a benign 2.4 x 2.1 x 0.7 cm cyst. At the 2:00 position, 7 cm from the nipple, there is a benign 1.6 x 0.8 x 0.7 cm cyst. At the 6:00 periareolar region, 4 cm from the nipple, there is some duct ectasia and either some focal vascularity within or adjacent to the duct which can be reassessed in 6 months. No obvious intraductal filling defect is identified at this time. Additional subareolar duct ectasia is noted. At the 11:00 position, 5 cm from the nipple, there is a circumscribed, oval, hypoechoic mass that could represent a small fibroadenoma measuring 7 x 6 x 3 mm. Reassess at follow-up. No other solid or cystic lesion or axillary lymphadenopathy. Overall Assessment: Suspicious, BI-RAD 4 Management: Ultrasound Core Biopsy of the left breast. Diagnostic Breast Ultrasound of the left breast in 6 months. Ultrasound-guided biopsy and/or aspiration of the 12:00 complex cyst. The 6:00 periareolar region and 11:00 position can be reassessed at 6 month follow-up. Results were given to the patient verbally at the time of exam. [facility], , 06/30/2024 10:53 AM. Electronically signed and approved by: Harsha Roberson M.D. Radiologist
== END | disposition home or self-care (01) ==
LOC: RADMAMWWP 09:08
PROVIDERS: ATTEND Family Medicine
DX: N63.20 Unspecified lump in the left breast, unspecified quadrant (principal); R92.343 Mammographic extreme density, bilateral breasts
CPT/HCPCS: 77066; 76641; G0279; 77062

== ENCOUNTER → 2024-07-16 | Day surgery (SDC) | payer MEDICARE ==
--- NOTE | 2024-07-26 09:55 | MM ---
Reason for Exam: Additional evaluation requested from prior study. Last screening mammogram was performed less than 1 month ago. Patient History: Menarche at age 14. First Full-Term at age 25. Hysterectomy at age 44. Patient used Hormonal Contraceptives for 25 years. 2001, Excisional Biopsy on the Left side. Risk Values: Yoly 5 year model risk: 0.9%. NCI Lifetime model risk: 10.8%. Prior Study Comparison: 12/12/2016 Right Diagnostic Mammogram, [facility]. 09/11/2021 Bilateral Screening Mammogram, [facility]. 06/30/2024 Bilateral MG 3D diag mammo w/cad [facility], [facility]. Tissue Density: Left: The breasts are extremely dense, which lowers the sensitivity of mammography. Pathology Description: Location: 12 o'clock. The ultrasound guided cyst aspiration procedure was explained to the patient. The risks, benefits, alternatives were discussed. An informed consent was then obtained. A time out was performed. The patient was placed in supine positioning for imaging and for the procedure. The overlying skin was prepped with betadine and sterilely draped in usual sterile fashion. 6 ml 1% lidocaine sodium bicarbonate was used as anesthetic into the skin and deeper breast tissue up to area of concern in the left breast 12:00 o'clock breast, 7 cm from nipple. Under ultrasound guidance, an 18-gauge spinal needle was advanced into the cyst and aspiration yielded 2 mL of dark black fluid. The fluid was labeled and sent for laboratory analysis. A Hydromark Butterfly clip was left in lesion. Good hemostasis was obtained with direct pressure. Postprocedure mammogram: The patient was transferred to mammography for physician ordered post procedure mammogram for clip placement verification. The clip is in the expected region of the biopsy. The patient tolerated the procedure well without any immediate complication. The patient was discharged to home in stable condition. Impression: Successful ultrasound guided cyst aspiration left breast. Cytology pending. [facility], , 07/16/2024 6:00 PM. Pathology Results: Result: Benign. LEFT BREAST CYST, 12 O'CLOCK, ASPIRATION: Hypocellular, non-diagnostic specimen with focal scattered red blood cells. Overall Assessment: Benign Assessment: MG diagnostic mammo LT wo CAD. - Left: Probably benign, BI-RAD 3. Management: Diagnostic Breast Ultrasound of the left breast in 6 months. Electronically signed and approved by: James Grider D.O. Radiologis
== END ==
LOC: RADUSWWP 10:08
PROVIDERS: ATTEND Surgery
DX: N60.02 Solitary cyst of left breast (principal)
CPT/HCPCS: 88108; 88305; 77065; 76942; 19000; A4648

== ENCOUNTER → 2025-02-10 | Outpatient (CLI) | payer MEDICARE, OTHER ==
--- NOTE | 2025-02-10 15:14 | USB ---
Reason for Exam: Follow-up at short interval from prior study. Patient History: Menarche at age 14. First Full-Term at age 25. Hysterectomy at age 44. Patient used Hormonal Contraceptives for 25 years. 07/16/2024, Benign US breast aspiration single LT on the left side. 2001, Excisional Biopsy on the Left side. Risk Values: Yoly 5 year model risk: 1.0%. NCI Lifetime model risk: 10.6%. Technique: Method: Targeted. Prior Study Comparison: 09/11/2021 Bilateral Screening Mammogram, [facility]. 06/30/2024 Bilateral MG 3D diag mammo w/cad [facility], [facility]. 07/16/2024 Left MG diagnostic mammo LT wo CAD., [facility]. Findings: The upper section of the breast of the left breast, the axilla of the left breast and the retroareolar of the left breast were scanned. Targeted ultrasound. At 12:00 position 7 cm distance from nipple there is a thin-walled cyst with some dependent debris currently measuring 1.2 cm long axis diminished in size from prior. At 1:00 position 7 cm distance from nipple there is an elongated thin-walled cyst redemonstrated measuring near 2.0 cm long axis. No concerning new solid or cystic masses. No suspicious left axillary adenopathy. Overall Assessment: Benign, BI-RAD 2 Management: Screening Mammogram of both breasts in 5 months. Return to routine follow-up. A clinical breast exam by your physician is recommended on an annual basis and results should be correlated with mammographic findings. This exam should not preclude additional follow-up of suspicious palpable abnormalities. Results were given to the patient verbally at the time of exam. [facility], , 02/10/2025 3:11 PM. Electronically signed and approved by: Tone Hathaway M.D.
== END | disposition home or self-care (01) ==
LOC: RADUSWWP 14:51
PROVIDERS: ATTEND Surgery
DX: R92.8 Other abnormal and inconclusive findings on diagnostic imaging of breast (principal); Z92.0 Personal history of contraception